=== PATIENT | female | born 1945 | race Caucasian/White ===

== ENCOUNTER 2022-10-02 12:41 | Inpatient (IN) | payer OTHER, MEDICARE ==
--- OUTSIDE RECORDS SUMMARY | 2022-10-02 12:43 | XMS REPORT | Continuity of Care Document ---
:1945 Author Organization [facility] t Address [address] [place] [address] Care Team Providers Name Role Phone Marie SMITH, Jt Alcantara Primary Care Physician Tiago SMITH, Morgan Kauffman Attending Clinician Iván BARLOW, Bharti Attending Clinician Unavailable Payers Payer Name Policy Type Policy Number Effective Date Expiration Date S ource Problems This patient has no known problems. Allergies, Adverse Reactions, Alerts This patient has no known allergies or adverse reactions. Family History Family Member Diagnosis Comments Start Date Stop Date Source Natural sister Schizophrenia [facility] sister Lupus [facility] sister Heart disease [facility] Natural sister Frontotemporal [facility] dementia [facility] son [facility] daughter [facility] Natural father Alzheimer's disease [facility] Social History Social Habit Start Date Stop Date Quantity Comments Source Gender identity 2020-11-09 Identifies as [facility] 12:12:03 female gender Hospital (finding) Sexual orientation 2020-11-09 Heterosexual [facility] 12:12:03 (finding) Hospital History of tobacco Current smoker [facility] use [facility] Alcohol intake 2022-01-05 2022-01-05 Lifetime [facility] 00:00:00 00:00:00 non-drinker [facility] (finding) History of Social 2022-01-05 2022-01-[address] function 00:00:00 00:00:00 Hospital Cigarettes smoked 2020-11-09 2020-11-[address] current (pack per 00:00:00 00:00:00 Hospita l day) - Reported Cigarette 2020-11-09 2020-11-09 [facility] pack-years 00:00:00 00:00:00 Hospital Tobacco use and 2020-11-09 2020-11-09 Smokeless tobacco [facility] exposure 00:00:00 00:00:00 non-user Hospital Tobacco Comment 2020-11-09 2020-11-09 Over 30 years ago [facility] 00:00:00 00:00:00 Hospital Sex Ass[birth year] At [birth year] F [facility] 00:00:00 00:00:00 Hospital Smoking Status Start Date Stop Date Source Ex-smoker 2020-11-09 00:00:00 2020-11-09 00:00:00 [facility] Medications Ordered Filled Start Stop Current Ordering Indication Dosage Frequency Signature Comments Components Source Medication Medication Date Date Medication? Clinician (SIG) Name Name UNABLE TO 2021- No Compound Met hodi FIND 01-05- pain cream st 10:04: 00:00 ( Hospita 06 :00 gabapentin l ,ketoprofe n cyclobenza jv, lidocaine, 5, 10, 2 , 5 ) since 02/06/20 2 x per day 02/2020 levothyroxi Yes 112ug QD Take 112 M ethodi ne 9- mcg by st (SYNTHROID) 09:39: mouth Hospi ta 112 mcg 30 daily. l tablet gabapentin Yes 400mg Q.[id number] Take 400 [facility] (NEURONTIN) 9-28 [id number] mg by s t 400 mg 09:39: 3D mouth 3 Hospita capsule 30 (three) l times a day. ibuprofen 0 Yes 200mg Q6H Take 200 Met hodi (ADVIL) 200 9-[address] MG tablet 09:39: mouth Hospita 30 every 6 l (six) hours as needed. Takes 2 per day acetaminoph 0 Yes 2000mg QD Take 4 Me thodi en 9-[address] (TYLENOL) 09:39: (2,000 mg Hos aldair 500 MG 30 total) by l tablet mouth daily. 4 x a day DULoxetine 0 Yes [id number] TAKE 1 [facility] (CYMBALTA) 9-[address] 30 MG 00:00: MOUTH Hospita capsule 00 EVERY DAY l WITH 60 MG TO MAKE 90 MG / DAY DULoxetine Yes [id number] 60mg QD Take 1 [facility] (CYMBALTA) 01-[address] 60 MG 00:00: (60 mg Hospita capsule 00 total) by l mouth daily. (Take with 30 mg to make a total dose of 90 mg daily) memantine Yes [id number] TAKE 1 M ethodi (NAMENDA) 8-[address] 10 MG 00:00: MOUTH Hospita tablet 00 TWICE A l DAY donepeziL Yes [id number] TAKE 1 M ethodi (ARICEPT) 5-[address] 10 MG 00:00: MOUTH Hospita tablet 00 EVERY DAY l AT NIGHT DULoxetine 2021- No [id number] TAKE 1 [facility] (CYMBALTA) 5-18 - CAPSULE BY st 60 MG 00:00: 00:00 MOUTH Hospita capsule 00 :00 EVERY DAY l WITH 30 MG TO MAKE 90 MG / DAY memantine 2021- No [id number] TAKE 1 [facility] (NAMENDA) 2-21 - TABLET BY st 10 MG 00:00: 00:00 MOUTH Hospita tablet 00 :00 TWICE A l DAY DULoxetine 2020-04- No [id number] TAKE 1 [facility] (CYMBALTA) -18 01-[address] 30 MG 00:00: 00:00 MOUTH Hospita capsule 00 :00 EVERY DAY l WITH 60 MG TO MAKE 90 MG / DAY traMADoL Yes 50mg Q.5D Take 1 [facility] (ULTRAM) 50 -09 tablet (50 st mg tablet 00:00: mg total) Hos aldair 00 by mouth 2 l (two) times a day. Takes 2 x a day Vital Signs Vital Name Observation Time Observation Value Comments Source Respiratory rate 2022-01-05 14:07:00 11 /min [facility] Body height 2022-01-05 14:07:00 162.6 cm [facility] Body weight 2022-01-05 14:07:00 53.343 kg [facility] BMI 2022-01-05 14:07:00 20.19 kg/m2 [facility] Procedures This patient has no known procedures. Plan of Care Planned Activity Planned Date Details Comments Source Future Scheduled 2022-09-[address] [facility] Test 14:35:33 (procedure) [code = 628477100] Future Scheduled 2022-09-25 SHINGLES VACCINES (1 Met [facility] Test 14:35:33 of 2) [code = SHINGLES VACCINES (1 of 2)] Future Scheduled 2022-09-25 65+ PNEUMOCOCCAL Method[facility] Test 14:35:33 VACCINE (1 - PCV) [code = 65+ PNEUMOCOCCAL VACCINE (1 - PCV)] Future Scheduled 2022-09-25 COVID-19 VACCINE (3 - [facility] Test 14:35:33 Pfizer series) [code = COVID-19 VACCINE (3 - Pfizer series)] Future Scheduled 2022-09-25 INFLUENZA VACCINE Method [facility] Test 14:35:33 [code = INFLUENZA VACCINE] Encounters Start End Encounter Admission Attending Care Care Encounter Source Date/Time Date/Time Type Type Clinicians Facility Department ID 2022-01-05 2022-01-05 Telemedici Pratimava [facility], 1.2.840.1 [id number] Method[facility] 10:00:00 10:11:50 ne Morgan [address]201.1.[address] [place] 3.430.2.7 Hospit a .3.477616 l .8 2022-01-05 2022-01-05 Outpatient [facility] [id number] [place] 00:00:00 00:00:00 MOHAM[address]AD [address] 2021-11-26 2021-11-26 Refill Pratim[facility], 1.2.840.1 [id number] Method[facility] 00:00:00 00:00:[address] [place] 3.430.2.7 Hospit a .3.461609 l .8 2021-10-27 2021-10-27 Social Ariesine, 1.2.840.1 [id number] Methodi 00:00:00 00:00:00 Work Bharti [address]275.1.[address] 3.430.2.7 Hospit a .3.593160 l .8 2021-10-12 2021-10-12 Telephone Delmi, 1.2.840.1 [id number] Methodi 00:00:00 00:00:00 Mohammad 37248.1.1 [address] [facility] 3.430.2.7 Hospit a .3.713302 l .8 2021-07-05 2021-07-05 Outpatient [facility] [id number] [place] 00:00:00 00:00:[address] 2020-11-10 2020-11-10 Outpatient [facility] [id number] [place] 00:00:00 00:00:00 MOHAMMAD [address] 2020-07-22 2020-07-22 Outpatient [facility] [id number] [place] 00:00:00 00:00:00 MOHAMMAD [address] 2020-07-22 2020-07-22 Outpatient [facility] [id number] [place] 00:00:00 00:00:00 MOHAMMAD [address] 2020-07-22 2020-07-22 Outpatient [facility] [id number] [place] 00:00:00 00:00:[address] 2020-03-16 2020-03-16 Outpatient [facility] [id number] [place] 00:00:00 00:00:00 MOH[address] Results This patient has no known results.
[2022-10-02] MEDS ORDERED: NA CHLORIDE 0.9% 500 ML ONE ×3 (13:25→21:31)
[2022-10-02 13:31] LABS: Absolute Lymphocytes (CBC) 1.3 K/uL (0.7-4.9); Hematocrit 42.4 % (36.0-45.0); MCV 86.3 fL (80-100); MPV 8.7 fL (7.6-11.3); RBC Red Blood Cell Count 4.92 M/uL (3.86-4.86)
[2022-10-02 13:57] LABS: Specific Gravity 1.026 (1.005-1.030); Urine Bacteria None Seen /HPF (<20); Urine Bilirubin NEGATIVE (Negative); Urine Blood Negative (Negative); Urine Clarity Extremely Turbid (Clear); Urine Color Yellow (Yellow); Urine Glucose NEGATIVE (Negative); Urine Mucus Slight /HPF (None Seen); Urine Protein 2+ (Negative); Urine Urobilinogen Normal (Normal); Urine pH 5.5 (5.0-7.0)
[2022-10-02 13:58] LABS: Albumin 3.9 g/dL (3.4-5.0); Bilirubin Total 0.4 mg/dL (0.2-1.0); Potassium 3.9 mEq/L (3.5-5.1); Protein, Total 7.9 g/dL (6.4-8.2); Thyroid Stimulating Hormone 0.009 uIU/mL (0.358-3.740)
--- NOTE | 2022-10-02 14:06 | RAD REPORT ---
EXAM DESCRIPTION: CT - CTHCSPWOC - 10/02/2022 1:58 pm CLINICAL HISTORY: Trauma, head and neck injury. CONFUSED COMPARISON: No comparisons TECHNIQUE: Axial 5 mm thick images of the head were obtained. Axial 2 mm thick images of the cervical spine were obtained with sagittal and coronal reconstruction images generated and reviewed. All CT scans are performed using dose optimization technique as appropriate and may include automated exposure control or mA/KV adjustment according to patient size. FINDINGS: CT HEAD WITHOUT CONTRAST: No acute hemorrhage, hydrocephalus or extra-axial collection is identified.Mild generalized brain atr ophy.No areas of brain edema or midline shift. The paranasal sinuses and mastoids are clear.The calvarium is intact. CT CERVICAL SPINE WITHOUT CONTRAST: No fracture or subluxation.No prevertebral soft tissues swelling is identified. IMPRESSION: No acute intracranial or cervical spine findings.
[2022-10-02 14:07] LABS: Platelet Estimate ADEQ
[2022-10-02 14:08] LABS: Blood Morphology Comment NOT SEEN (NOT SEEN)
--- NOTE | 2022-10-02 14:43 | RAD REPORT ---
EXAM DESCRIPTION: RAD - Chest Single View - 10/02/2022 2:36 pm CLINICAL HISTORY: COUGH Chest pain. COMPARISON: Chest Pa And Lat (2 Views) dated 11/04/2021 FINDINGS: Portable technique limits examination quality. There is a mild infiltrate in the left lung base likely infiltrate/pneumonia. The lungs are otherwise emphysematous. The heart is normal in size. No displaced fractures. IMPRESSION: Mild left base infiltrate suspected.
[2022-10-02 15:08] LABS: T3 Free 2.05 pg/mL (2.18-3.98)
--- NOTE | 2022-10-02 15:50 | EDPHYS ---
Physician Documentation [facility] Name: Janna Brannon Age: 77 yrs Sex: Female : 1945 Arrival Date: 10/02/2022 Time: 12:41 Bed 6 Private MD: ED Physician Devin De La Garza HPI: 10/02 13:13 This 77 yrs old Female presents to ER via EMS with complaints of Altered Mental Status, snw General Weakness. 13:13 The patient presents with confusion. Onset: The symptoms/episode began/occurred snw acutely. Possible causes: UTI. Current symptoms: In the emergency department the patient's symptoms are unchanged from the initial presentation. The patient has been recently seen by a physician: with different complaint(s), and apparently was diagnosed with UTI. Historical: - Allergies: 12:55 No Known Allergies; iw - Home Meds: 12:56 donepezil 10 mg oral Tablet,disintegrating daily [Active]; duloxetine 30 mg oral iw capsule,delayed release (e.c.) daily [Active]; gabapentin 400 mg oral capsule daily [Active]; levothyroxine 125 mcg tablet daily [Active]; memantine 10 mg oral tablet 2 times per day [Active]; pravastatin 20 mg oral tablet daily [Active]; sulfamethoxazole-trimethoprim 800-160 mg Oral tablet 2 times per day [Active]; tramadol 50 mg Oral tablet 2 times per day [Active]; - PMHx: 12:55 Hypothyroidism; Alzheimer's disease; Hypercholesterolemia; radiculopathy, lumbar; iw thyroid cancer; Osteoarthritis; - Immunization history:: Adult Immunizations unknown. - Social history:: Smoking status: unknown. ROS: 13:11 Eyes: Negative for injury, pain, redness, and discharge. snw 13:11 Neck: Negative for injury, pain, and swelling, Cardiovascular: Negative for chest pain, palpitations, and edema, Respiratory: Negative for shortness of breath, cough, wheezing, and pleuritic chest pain, Abdomen/GI: Negative for abdominal pain, nausea, vomiting, diarrhea, and constipation, Back: Negative for injury and pain. 13:11 MS/Extremity: Negative for injury and deformity, Skin: Negative for injury, rash, and discoloration, Psych: Negative for depression, anxiety, suicide ideation, homicidal ideation, and hallucinations. 13:11 Constitutional: Positive for malaise, AMS. 13:11 ENT: Positive for clearing throat continually. 13:11 : Positive for on Bactrim for UTI. 13:11 Neuro: Positive for altered mental status, weakness. Exam: 13:06 Head/Face: Normocephalic, atraumatic. Eyes: Pupils equal round and reactive to light, snw extra-ocular motions intact. Lids and lashes normal. Conjunctiva and sclera are non-icteric and not injected. Cornea within normal limits. Periorbital areas with no swelling, redness, or edema. 13:06 Neck: Trachea midline, no thyromegaly or masses palpated, and no cervical lymphadenopathy. Supple, full range of motion without nuchal rigidity, or vertebral point tenderness. No Meningismus. Chest/axilla: Normal chest wall appearance and motion. Nontender with no deformity. No lesions are appreciated. Cardiovascular: Irregularly irregular rate and rhythm with a normal S1 and S2. No gallops, murmurs, or rubs. Normal PMI, no JVD. No pulse deficits. Respiratory: Lungs have equal breath sounds bilaterally, clear to auscultation and percussion. No rales, rhonchi or wheezes noted. No increased work of breathing, no retractions or nasal flaring. Abdomen/GI: Soft, non-tender, with normal bowel sounds. No distension or tympany. No guarding or rebound. No evidence of tenderness throughout. Back: No spinal tenderness. No costovertebral tenderness. Full range of motion. Skin: Warm, dry with normal turgor. Normal color with no rashes, no lesions, and no evidence of cellulitis. MS/ Extremity: Pulses equal, no cyanosis. Neurovascular intact. Full, normal range of motion. 13:06 Constitutional: The patient appears alert, awake, pale, confused 13:06 ENT: Mouth: Oral mucosa: dry, continues to try to clear her throat. 13:06 Neuro: Orientation: to person, Mentation: confused, Memory: alzheimer's, seizure activity, is not displayed by the patient, Abnormal movements: there are no abnormal movements. Vital Signs: 12:54 BP 168 / 74; Pulse 88; Resp 19; Temp 97; Pulse Ox 99% on R/A; iw 15:11 BP 139 / 60; Pulse 83; Resp 16; Pulse Ox 97% on R/A; iw 16:46 BP 139 / 73; Pulse 85; Resp 16; Pulse Ox 96% on R/A; iw 20:00 BP 127 / 59; Pulse 82; Resp 23; Pulse Ox 98% on R/A; jb4 Nehemiah Coma Score: 13:06 Eye Response: spontaneous(4). Motor Response: localizes pain(5). Verbal Response: snw confused(4). Total: 13. MDM: 12:45 Patient medically screened. wilber 15:12 Differential Diagnosis: electrolyte abnormality, pneumonia, sepsis, UTI, volume snw depletion. Data reviewed: vital signs, nurses notes, lab test result(s), EKG, radiologic studies. Management of patient was discussed with the following: Pt's LORENA Killian (Daughter) . Post IV fluid administration reassessment for Sepsis: Client not prescribed the 30 mL/kg IVF due to: concern related to renal failure. Amount of IVF prescribed: 1500 500ml at a time Neuro: Neurological examination did not improve from previous exam. Cardio: Cardiovascular examination improved from previous exam. Heart rate and blood pressure have improved. 15:15 ED course: Upon re-evaluation, pt is hemodynamically stable but is more sedate, snw decreased responsiveness. 10/02 13:06 Order name: CBC with Diff; Complete Time: 14:10 snw 10/02 13:06 Order name: CMP; Complete Time: 14:00 snw 10/02 13:06 Order name: Urinalysis w/ reflexes; Complete Time: 13:58 snw 10/02 13:06 Order name: TSH; Complete Time: 14:00 snw 10/02 13:34 Order name: Manual Differential; Complete Time: 14:10 EDMS 10/02 14:01 Order name: Blood Culture Adult (2) snw 10/02 14:01 Order name: Urine Culture snw 10/02 14:01 Order name: T3 Free; Complete Time: 15:12 snw 10/02 14:01 Order name: T4 Free; Complete Time: 15:12 snw 10/02 15:23 Order name: Magnesium; Complete Time: 17:27 snw 10/02 15:23 Order name: Phosphorus; Complete Time: 17:27 snw 10/02 15:23 Order name: Calcium; Complete Time: 17:27 snw 10/02 15:23 Order name: LDH; Complete Time: 17:27 snw 10/02 15:23 Order name: Lactate w/ 2H reflex if indic.; Complete Time: 17:27 snw 10/02 15:23 Order name: Uric Acid; Complete Time: 17:27 snw 10/02 16:32 Order name: Glucose, Ancillary Testing; Complete Time: 16:37 EDMS 10/02 17:12 Order name: CBC with Automated Diff EDMS 10/02 17:12 Order name: CBC with Automated Diff EDMS 10/02 17:12 Order name: Comprehensive Metabolic Panel EDMS 10/02 17:12 Order name: Comprehensive Metabolic Panel EDMS 10/02 17:43 Order name: Glucose, Ancillary Testing; Complete Time: 17:44 EDMS 10/02 13:06 Order name: CT Head C Spine; Complete Time: 14:10 snw 10/02 13:14 Order name: Chest Single View XRAY; Complete Time: 14:48 snw 10/02 13:14 Order name: EKG; Complete Time: 13:14 snw 10/02 17:12 Order name: Renal EDMS 10/02 13:06 Order name: IV Saline Lock; Complete Time: 13:26 snw 10/02 13:06 Order name: Labs collected and sent; Complete Time: 13:26 snw 10/02 13:14 Order name: EKG - Nurse/Tech; Complete Time: 14:20 snw Administered Medications: 13:18 Drug: NS 0.9% IV 500 ml Route: IV; Rate: bolus; Site: right forearm; iw 15:09 Drug: NS 0.9% IV 500 ml Route: IV; Rate: bolus; Site: right forearm; iw 16:00 Follow up: IV Status: Completed infusion iw 16:23 Drug: Rocephin IV 1 grams Route: IV; Rate: calculated rate; Site: right forearm; iw 17:23 Drug: Naloxone IVP 0.1 mg Route: IVP; Site: right forearm; iw Disposition Summary: 10/02/22 15:50 Hospitalization Ordered Hospitalization Status: Inpatient Admission snw Provider: Morgan Harper [facility] Condition: Fair snw Problem: new snw Symptoms: are unchanged snw Bed/Room Type: Standard snw Room Assignment: 424(10/02/22 20:05) bc6 Diagnosis - Severe sepsis without septic shock snw - Unspecified bacterial pneumonia snw - Dehydration with DOYLE snw - Altered mental status, unspecified snw Forms: - Medication Reconciliation Form snw - SBAR form snw Signatures: Dispatcher [employer] EDMS Devin De La Garza MD MD cha Waters, Shelly, TUNNEL HEADING INSPECTOR-C TUNNEL HEADING INSPECTOR-Csnw Farzaneh Zuniga RN RN Deepti Brambila bc6 Corrections: (The following items were deleted from the chart) 12:58 12:55 Constitutional: This is a well developed, well nourished patient who is awake, snw alert, and in no acute distress. snw 13:13 13:06 Neck: Trachea midline, no thyromegaly or masses palpated, and no cervical snw lymphadenopathy. Supple, full range of motion without nuchal rigidity, or vertebral point tenderness. No Meningismus. Chest/axilla: Normal chest wall appearance and motion. Nontender with no deformity. No lesions are appreciated. Cardiovascular: Regular rate and rhythm with a normal S1 and S2. No gallops, murmurs, or rubs. Normal PMI, no JVD. No pulse deficits. Respiratory: Lungs have equal breath sounds bilaterally, clear to auscultation and percussion. No rales, rhonchi or wheezes noted. No increased work of breathing, no retractions or nasal flaring. Abdomen/GI: Soft, non-tender, with normal bowel sounds. No distension or tympany. No guarding or rebound. No evidence of tenderness throughout. Back: No spinal tenderness. No costovertebral tenderness. Full range of motion. Skin: Warm, dry with normal turgor. Normal color with no rashes, no lesions, and no evidence of cellulitis. MS/ Extremity: Pulses equal, no cyanosis. Neurovascular intact. Full, normal range of motion. snw 20:05 15:50 snw bc6
--- NOTE | 2022-10-02 15:50 | ER ---
Nurse's Notes [facility] Name: Janna Brannon Age: 77 yrs Sex: Female : 1945 Arrival Date: 10/02/2022 Time: 12:41 Bed 6 Private MD: Diagnosis: Severe sepsis without septic shock;Unspecified bacterial pneumonia;Dehydration with DOYLE;Altered mental status, unspecified Presentation: 10/02 12:45 Chief complaint: EMS states: toned out for AMS, pt has been on Bactrim for UTI X 1 iw week, became more weak and tired over past two days, she normally walks and talks , hx of dementia , pt able to follow commands. Coronavirus screen: At this time, the client does not indicate any symptoms associated with coronavirus-19. Ebola Screen: Patient negative for fever greater than or equal to 101.5 degrees Fahrenheit, and additional compatible Ebola Virus Disease symptoms Patient denies exposure to infectious person. Patient denies travel to an Ebola-affected area in the 21 days before illness onset. No symptoms or risks identified at this time. Risk Assessment: Do you want to hurt yourself or someone else? Patient reports no desire to harm self or others. 12:45 Method Of Arrival: EMS: [facility] iw 12:45 Acuity: ROSIE 3 iw Historical: - Allergies: 12:55 No Known Allergies; iw - Home Meds: 12:56 donepezil 10 mg oral Tablet,disintegrating daily [Active]; duloxetine 30 mg oral iw capsule,delayed release (e.c.) daily [Active]; gabapentin 400 mg oral capsule daily [Active]; levothyroxine 125 mcg tablet daily [Active]; memantine 10 mg oral tablet 2 times per day [Active]; pravastatin 20 mg oral tablet daily [Active]; sulfamethoxazole-trimethoprim 800-160 mg Oral tablet 2 times per day [Active]; tramadol 50 mg Oral tablet 2 times per day [Active]; - PMHx: 12:55 Hypothyroidism; Alzheimer's disease; Hypercholesterolemia; radiculopathy, lumbar; iw thyroid cancer; Osteoarthritis; - Immunization history:: Adult Immunizations unknown. - Social history:: Smoking status: unknown. Screenin:05 Abuse screen:. Nutritional screening:. Tuberculosis screening: No symptoms or risk iw factors identified. 15:12 [facility] ED Fall Risk Assessment (Adult) History of falling in the last 3 months, iw including since admission. Assessment: 13:04 General: Appears in no apparent distress. slender, Behavior is restless. Pain: Unable iw to use pain scale. FLACC scale score is 5 out of 10. Neuro: Level of Consciousness is awake, obeys commands, Oriented to person, Moves all extremities. Cardiovascular: Patient's skin is warm and dry. Respiratory: Respiratory effort is even, unlabored, Respiratory pattern is regular, symmetrical. GI: Abdomen is non-distended. Derm: Skin is fragile. 15:10 Reassessment: pt is difficult to arouse, opens eyes to sternal rub , caregiver at iw bedside, states she has been like this for past 20 minutes, called daughter to update. 16:20 Reassessment: pt remains difficult to arouse, reacts only to painful stimuli, pulls arm iw away, VSS, FSBS WNL. 17:53 Reassessment: removed blankets from pt, she grabbed at the blankets to pull them back iw over her, assisted pt to upright position , opening eyes , smiling. 18:35 Reassessment: [phone] cell phone number for gourmet coffee attendant/friend Arti , daughter will iw be en route via airplane , will arrive at approx 830 pm. 18:38 Reassessment: pt resting with eyes closed, respirations even and unlabored , VSS. iw 19:00 Reassessment: Patient appears in no apparent distress at this time. No changes from jb4 previously documented assessment. Patient and/or family updated on plan of care and expected duration. Pain level reassessed. 20:07 Reassessment: Pt is now awake and talking. Pt is A\T\Ox1. respirations are even and jb4 unlabored with no s/s of distress ntoed. Vital Signs: 12:54 BP 168 / 74; Pulse 88; Resp 19; Temp 97; Pulse Ox 99% on R/A; iw 15:11 BP 139 / 60; Pulse 83; Resp 16; Pulse Ox 97% on R/A; iw 16:46 BP 139 / 73; Pulse 85; Resp 16; Pulse Ox 96% on R/A; iw 20:00 BP 127 / 59; Pulse 82; Resp 23; Pulse Ox 98% on R/A; jb4 Nehemiah Coma Score: 13:06 Eye Response: spontaneous(4). Motor Response: localizes pain(5). Verbal Response: snw confused(4). Total: 13. ED Course: 12:43 Patient arrived in ED. iw 12:43 [facility]C [facility] snw 12:43 Devin De La Garza MD is Attending Physician. snw 12:46 Triage completed. iw 12:54 Farzaneh Zuniga, RAMILA is Primary Nurse. iw 13:00 Arm band placed on. iw 14:00 CT Head C Spine In Process Unspecified. EDMS 14:20 Urine Culture Sent. mm9 14:20 T3 Free Sent. mm9 14:20 T4 Free Sent. mm9 14:20 Blood Culture Adult (2) Sent. mm9 14:38 Chest Single View XRAY In Process Unspecified. EDMS 15:12 Patient has correct armband on for positive identification. iw 15:48 Morgan Harper MD is Hospitalizing Provider. snw 16:24 Uric Acid Sent. iw 16:24 Lactate w/ 2H reflex if indic. Sent. iw 16:24 LDH Sent. iw 16:24 Calcium Sent. iw 16:24 Phosphorus Sent. iw 16:24 Magnesium Sent. iw 20:33 No provider procedures requiring assistance completed. Patient admitted, IV remains in jb4 place. Administered Medications: 13:18 Drug: NS 0.9% IV 500 ml Route: IV; Rate: bolus; Site: right forearm; iw 15:09 Drug: NS 0.9% IV 500 ml Route: IV; Rate: bolus; Site: right forearm; iw 16:00 Follow up: IV Status: Completed infusion iw 16:23 Drug: Rocephin IV 1 grams Route: IV; Rate: calculated rate; Site: right forearm; iw 17:23 Drug: Naloxone IVP 0.1 mg Route: IVP; Site: right forearm; iw Medication: 13:06 VIS not applicable for this client. iw Outcome: 15:50 Decision to Hospitalize by Provider. snw 20:33 Admitted to Tele accompanied by tech, via stretcher, room 424, with chart. jb4 20:33 Condition: stable 20:33 Discharge instructions given to gourmet coffee attendant, Instructed on the need for admit, Demonstrated understanding of instructions. 20:35 Patient left the ED. jb4 Signatures: Dispatcher [employer] Cynthia Cook, SCHEDULING ASSISTANT-C SCHEDULING ASSISTANT-Csnw Farzaneh Zuniga, RN RN iw August Doran RN RN jb4 Marisol Hernandez mm9
[2022-10-02] MEDS ORDERED: CEFTRIAXONE 1000 MG/VIAL ONE (16:17)
[2022-10-02 16:52] LABS: Magnesium 2.7 mg/dL (1.6-2.4); Phosphorus 3.5 mg/dL (2.5-4.9); Uric Acid 6.7 mg/dL (2.6-6.0)
[2022-10-02] MEDS ORDERED: ACETAMINOPHEN 500 MG TAB PO PRN (17:08)
[2022-10-02] MEDS ORDERED: ONDANSETRON 4 MG/2 ML VIAL IV PRN (17:08)
[2022-10-02] MEDS ORDERED: MORPHINE 2 MG/ML SYR IV PRN (17:08)
[2022-10-02] MEDS ORDERED: NALOXONE 0.4 MG/ML VIAL ONE (17:33)
[2022-10-02] MEDS: NA CHLORIDE 0.9% 1,000 ML IV SCH ×2 (18:00→22:18)
[2022-10-03 02:14] VITALS: O2SAT 97; BMI 19.7
[2022-10-03] MEDS: NA CHLORIDE 0.9% 1,000 ML IV SCH ×2 (04:00→09:17)
[2022-10-03 06:35] LABS: Absolute Lymphocytes (CBC) 1.1 K/uL (0.7-4.9); Hematocrit 34.6 % (36.0-45.0); Lymphocytes % 9.1 % (15.3-44.8); MCV 86.5 fL (80-100); MPV 8.6 fL (7.6-11.3)
[2022-10-03 06:56] LABS: Albumin 2.9 g/dL (3.4-5.0); Bilirubin Total 0.4 mg/dL (0.2-1.0); Potassium 3.8 mEq/L (3.5-5.1); Protein, Total 5.8 g/dL (6.4-8.2)
[2022-10-03] MEDS ORDERED: PNEUMOCOCCAL VACCINE 0.5 ML IMVAC ONE (08:00)
[2022-10-03] MEDS ORDERED: CEFTRIAXONE 1,000 MG in NA CHLORIDE 0.9% 50 ML IVPB SCH (09:00)
--- NOTE | 2022-10-03 11:53 | P.PN ---
Date of Service: 10/03/22 Subjective: ROS: 10 point ROS as noted above, otherwise negative Physical Exam: GEN: Alert, oriented, NAD HEENT: Normal conjunctiva, sclera anicteric CV: Regular rate & rhythm, no edema Pulm: Nonlabored respiraitons on room air ABD: Soft, nontender, nondistended MSK: No joint tenderness Integumentary: No rashes Neuro: Normal speech, normal affect vitals reviewed Problem List: Altered mental status Hypothyroidism Alzheimer's disease hx of thyroid cancer Osteoarthritis Blood cultures: pending Urine culture: pending continue Rocephin(10/03-) PRN pain meds IVF DCd continue home medications VTE: Code: Full Dispo: Home
[2022-10-03] MEDS ORDERED: QUETIAPINE 25 MG TAB PO ONE (20:28)
[2022-10-03] MEDS: ENSURE ENLIVE 237 ML CAN PO SCH (20:29)
[2022-10-03] MEDS: GABAPENTIN 400 MG CAP PO SCH (20:37)
[2022-10-03] MEDS: TRAMADOL HCL 50 MG TAB PO SCH (20:37)
[2022-10-03] MEDS: DONEPEZIL HCL 5 MG TAB PO SCH (20:38)
[2022-10-03] MEDS: ATORVASTATIN 10 MG TAB PO SCH (20:38)
[2022-10-03] MEDS: MEMANTINE HCL 10 MG TABLET PO SCH (20:38)
[2022-10-04] MEDS: NA CHLORIDE 0.9% 1,000 ML IV SCH
[2022-10-04] MEDS: LEVOTHYROXINE SOD 0.125 MG TAB PO SCH (05:19)
[2022-10-04] MEDS: ENSURE ENLIVE 237 ML CAN PO SCH ×2 (09:00→20:15)
[2022-10-04] MEDS: AMOX/K CLAV 875 MG TAB PO SCH ×2 (09:03→20:14)
[2022-10-04] MEDS: MEMANTINE HCL 10 MG TABLET PO SCH ×2 (09:04→20:15)
[2022-10-04] MEDS: TRAMADOL HCL 50 MG TAB PO SCH ×2 (09:04→20:14)
[2022-10-04] MEDS: GABAPENTIN 400 MG CAP PO SCH ×2 (09:05→20:15)
[2022-10-04] MEDS: DULOXETINE 30 MG CAP PO SCH (09:05)
[2022-10-04 09:48] LABS: Absolute Lymphocytes (CBC) 1.3 K/uL (0.7-4.9); Hematocrit 33.1 % (36.0-45.0); Lymphocytes % 16.3 % (15.3-44.8); MCV 86.2 fL (80-100); MPV 8.6 fL (7.6-11.3); RBC Red Blood Cell Count 3.84 M/uL (3.86-4.86)
[2022-10-04 09:54] LABS: Albumin 2.7 g/dL (3.4-5.0); Bilirubin Total 0.5 mg/dL (0.2-1.0); Potassium 3.4 mEq/L (3.5-5.1); Protein, Total 5.6 g/dL (6.4-8.2)
--- NOTE | 2022-10-04 10:59 | P.PN ---
Subjective Date of Service: 10/04/22 Subjective: Improving (pt is more alert, tolerating po, continues to be max assist with transfers) Review of Systems General: Unremarkable Eyes: Unremarkable ENT: Unremarkable Respiratory: Unremarkable Cardiovascular: Unremarkable Gastrointestinal: Unremarkable Genitourinary: Unremarkable Musculoskeletal: Other (generalized weakness) Integumentary: Unremarkable Neurological: Weakness Physical Examination - Vital Signs Temperature: 98 F Blood Pressure: 123/60 Pulse: 63 Respirations: 16 Pulse Ox (%): 96 - Physical Exam General: In no apparent distress HEENT: Atraumatic, PERRLA, EOMI Neck: Supple, JVD not distended Respiratory: Clear to auscultation bilaterally Cardiovascular: No edema Capillary refill: <2 Seconds Gastrointestinal: Normal bowel sounds Musculoskeletal: Other (generalized weakness) Integumentary: No rashes Neurological: Other (max assist for transfers) Lymphatics: No axilla or inguinal lymphadenopathy External genitalia: Deferred Assessment And Plan - Current Problems (Diagnosis) (1) Altered mental status Current Visit: Yes Status: Acute Qualifiers: Altered mental status type: transient alteration of awareness Qualified Code(s): R40.4 - Transient alteration of awareness (2) Pneumonia Current Visit: Yes Status: Acute Plan: Blood cultures negative, discontinue IVF, IV abx (Rocephin), will change to po abx (Augmentin) Qualifiers: Pneumonia type: due to unspecified organism Laterality: left Lung location: lower lobe of lung Qualified Code(s): J18.9 - Pneumonia, unspecified organism (3) UTI (urinary tract infection) Current Visit: Yes Status: Acute Plan: Partially treated UTI from community provider with Bactrim, stopped in ED second to DOYLE. Tx with Rocephin inpatient to finish UTI treatment and also for pneumonia treatment. Qualifiers: Urinary tract infection type: acute cystitis (4) Weakness Current Visit: Yes Status: Acute Plan: Consult Review Manager to [facility] for inpatient rehab. Consult Physical Therapy (5) Acute kidney injury Current Visit: Yes Status: Acute Plan: Resolved with discontinuation of Bactrim and gentle IV fluid initiation. Creatinine from 3.38 to 0.95 this am. Will transition to po Augmentin at full dosing and dc IVF. - Plan Continue Neuro checks q 12h, continue treatment of infection Discharge Plan: Other (inpatient rehab) Plan to discharge in: 24 Hours - Code Status/Comfort Care Code Status Assessed: Yes Code Status: Full Code Time Spent Managing PTS Care (In Minutes): 30
[2022-10-04] MEDS: DONEPEZIL HCL 5 MG TAB PO SCH (20:13)
[2022-10-04] MEDS: ATORVASTATIN 10 MG TAB PO SCH (20:15)
[2022-10-05] MEDS: LEVOTHYROXINE SOD 0.125 MG TAB PO SCH (06:08)
--- NOTE | 2022-10-05 07:20 | P.PN ---
Date of Service: 10/05/22 Subjective: weak, +incontinence (can feel when she needs to go per family, +physical limitations) dementia, hard to come up with words when talking per family no acute events overnight afebrile ROS: 10 point ROS as noted above, otherwise negative Physical Exam: GEN: weak, tired, confused HEENT: Normal conjunctiva, sclera anicteric CV: Regular rate & rhythm, no edema Pulm: Nonlabered respiraitons on room air ABD: Soft, nontender, nondistended MSK: No joint tenderness Integumentary: No rashes Neuro: Normal speech, normal affect vitals reviewed Problem List: Altered mental status Pneumonia UTI DOYLE Hypothyroidism Alzheimer's disease hx of thyroid cancer Osteoarthritis Blood cultures: NGTD Urine culture: pending Rocephin(10/03) switched to PO Augmentin (10/04-) PRN pain meds IVF DCd continue home medications VTE: Code: Full Dispo: Inpatient rehab approved pending further clinical improvement
[2022-10-05] MEDS: TRAMADOL HCL 50 MG TAB PO SCH (08:11)
[2022-10-05] MEDS: AMOX/K CLAV 875 MG TAB PO SCH (08:12)
[2022-10-05] MEDS: GABAPENTIN 400 MG CAP PO SCH (08:12)
[2022-10-05] MEDS: MEMANTINE HCL 10 MG TABLET PO SCH (08:12)
[2022-10-05] MEDS: DULOXETINE 30 MG CAP PO SCH (08:12)
[2022-10-05] MEDS: ENSURE ENLIVE 237 ML CAN PO SCH (08:13)
[2022-10-05 08:16] VITALS: TEMP 97.4
[2022-10-05 08:37] LABS: Potassium 3.5 mEq/L (3.5-5.1)
--- NOTE | 2022-10-05 11:43 | P.DS ---
Admission Date: 10/02/22 Discharge Date: 10/05/22 Disposition: TRANSFER TO INPATIENT REHAB Hospital Course: Problem List: Altered mental status Pneumonia UTI POA Hypothyroidism Alzheimer's disease hx of thyroid cancer Osteoarthritis Patient presented with altered mental status. x-ray of the chest revealed mild infiltrate in the left lung base likely infiltrate/pneumonia. Patient was partially treated UTI from community provider with Bactrim, and switched to rocephin due to suspected allergy which may have contributed to altered mentation/DOYLE. DOYLE resolved with discontinuation of bactrim and gentle IVF. Rocephin was switched to PO augmentin to treat suspected pneumonia/UTI. Blood & urine cultures were without growth, however final results pending upon discharge. New / change in prescriptions: continue home medications as previously prescribed Stay away from bactrim due to suspected allergy (altered mentation +DOYLE) Follow up: PCP 3-5 days Physical Exam: GEN: weak, tired, confused HEENT: Normal conjunctiva, sclera anicteric CV: Regular rate & rhythm, no edema Pulm: Nonlabered respiraitons on room air ABD: Soft, nontender, nondistended MSK: No joint tenderness Integumentary: No rashes Neuro: Normal speech, normal affect Vital Signs/Physical Exam: Temp Pulse Resp BP Pulse Ox 97.4 F 59 20 146/55 H 96 10/05/22 08:00 10/05/22 08:00 10/05/22 08:00 10/05/22 08:00 10/05/22 08:00 Laboratory Data at Discharge: WBC 7.90 thou/uL (4.3-10.9) 10/04/22 09:23 Hgb 11.1 g/dL (12.0-15.0) L 10/04/22 09:23 Hct 33.1 % (36.0-45.0) L 10/04/22 09:23 Plt Count 205 thou/uL (152-406) 10/04/22 09:23 Sodium 139 mEq/L (136-145) 10/05/22 08:06 Potassium 3.5 mEq/L (3.5-5.1) 10/05/22 08:06 BUN 22 mg/dL (7-18) H 10/05/22 08:06 Creatinine 0.74 mg/dL (0.55-1.02) 10/05/22 08:06 Glucose 92 mg/dL (74-106) 10/05/22 08:06 Uric Acid 6.7 mg/dL (2.6-6.0) H 10/02/22 16:20 Phosphorus 3.5 mg/dL (2.5-4.9) 10/02/22 16:20 Magnesium 2.7 mg/dL (1.6-2.4) H 10/02/22 16:20 Total Bilirubin 0.5 mg/dL (0.2-1.0) 10/04/22 09:23 AST 27 U/L (15-37) 10/04/22 09:23 ALT 23 U/L (13-56) 10/04/22 09:23 Alkaline Phosphatase 55 U/L (45-117) 10/04/22 09:23 Home Medications: Donepezil HCl 10 mg PO BEDTIME 10/03/22 Duloxetine HCl 30 mg PO DAILY 10/03/22 Gabapentin 400 mg PO BID 10/03/22 Ibuprofen 200 mg PO DAILY PRN 10/03/22 Levothyroxine [Synthroid] 125 mcg PO [id number] 10/03/22 Memantine HCl 10 mg PO BID 10/03/22 Pravastatin Sodium 20 mg PO BEDTIME 10/03/22 Tramadol HCl [Ultram] 50 mg PO BID 10/03/22 Physician Discharge Instructions: Patient presented with altered mental status. x-ray of the chest revealed mild infiltrate in the left lung base likely infiltrate/pneumonia. Patient was partially treated UTI from community provider with Bactrim, and switched to rocephin due to suspected allergy which may have contributed to altered mentation/DOYLE. DOYLE resolved with discontinuation of bactrim and gentle IVF. Rocephin was switched to PO augmentin to treat suspected pneumonia/UTI. Blood & urine cultures were without growth, however final results pending upon discharge. New / change in prescriptions: continue home medications as previously prescribed Stay away from bactrim due to suspected allergy (altered mentation +DOYLE) Follow up: PCP 3-5 days Followup: NONE,NONE [Primary Care Provider] - Time spent managing pt's care (in minutes): 45
[2022-10-05 11:54] VITALS: BP 114/49
== END 2022-10-05 13:04 | DRG 871 ==
LOC: ER 12:41 → ERHOLD 17:08 → 4TH 20:15
PROVIDERS: ADMIT Hospitalist; ATTEND Hospitalist
DX: A41.9 Sepsis, unspecified organism (principal); G93.41 Metabolic encephalopathy; J15.9 Unspecified bacterial pneumonia; N17.9 Acute kidney failure, unspecified; N30.00 Acute cystitis without hematuria; R65.20 Severe sepsis without septic shock; E03.9 Hypothyroidism, unspecified; E86.0 Dehydration; M19.90 Unspecified osteoarthritis, unspecified site; E78.00 Pure hypercholesterolemia, unspecified; G30.9 Alzheimer's disease, unspecified; F02.80 Dementia in other diseases classified elsewhere, unspecified severity, without behavioral disturbance, psychotic disturbance, mood disturbance, and anxiety; Z79.890 Hormone replacement therapy; Z79.899 Other long term (current) drug therapy
CPT/HCPCS: 36415; 70450; 71045; 72125; 80048; 80053; 81001; 82310; 82947; 83605; 83615; 83735; 84100; 84439; 84443; 84481; 84550; 85025; 87040; 96361; 96374; 96375; 97116; 97163; 97530; 99285; J0696; J2310; J2405; J7030; J7040

== ENCOUNTER 2023-02-20 23:20 | Emergency (ER) | payer OTHER, MEDICARE ==
--- OUTSIDE RECORDS SUMMARY | 2023-02-20 23:29 | XMS REPORT | Continuity of Care Document ---
:1945 Author Organization [facility] t Address [address] [facility]. [address] [place] [address] Care Team Providers Name Role Phone Marie SMITH, Jt Alcantara Primary Care Physician Iván BARLOW, Bharti Attending Clinician Unavailable Damián RN, Vee Attending Clinician Unavailable Tiago SMITH, Morgan Kauffman Attending Clinician [phone] Payers Payer Name Policy Type Policy Number Effective Date Expiration Date S ource Problems This patient has no known problems. Allergies, Adverse Reactions, Alerts This patient has no known allergies or adverse reactions. Family History Family Member Diagnosis Comments Start Date Stop Date Source Natural sister Schizophrenia [facility] sister Lupus [facility] Natural sister Heart disease [facility] Natural sister Frontotemporal [facility] dementia [facility] son [facility] Natural father Alzheimer's disease [facility] Social History Social Habit Start Date Stop Date Quantity Comments Source Gender identity 2020-11-09 Identifies as [facility] 12:12:03 female gender Hospital (finding) Sexual orientation 2020-11-09 Heterosexual [facility] 12:12:03 (finding) Hospital History of tobacco Cigarette Smoker [facility] use Hospital Alcohol intake 2022-01-05 2022-01-05 Lifetime [facility] 00:00:00 00:00:00 non-drinker Hospital (finding) History of Social 2022-01-05 2022-01-[address] function 00:00:00 00:00:00 Hospital Cigarettes smoked 2020-11-09 2020-11-[address] current (pack per 00:00:00 00:00:00 Hospita l day) - Reported Cigarette 2020-11-09 2020-11-09 [facility] pack-years 00:00:00 00:00:00 Hospital Tobacco Comment 2020-11-09 2020-11-09 Over 30 years ago [facility] 00:00:00 00:00:00 Hospital Tobacco use and 2020-11-09 2020-11-09 Smokeless tobacco [facility] exposure 00:00:00 00:00:00 non-user Hospital Sex Assigned At [birth year] F Sabianism 00:00:00 00:00:00 Hospital Smoking Status Start Date Stop Date Source Ex-smoker 2020-11-09 00:00:00 2020-11-09 00:00:00 [facility] Medications Ordered Filled Start Stop Current Ordering Indication Dosage Frequency Signature Comments Components Source Medication Medication Date Date Medication? Clinician (SIG) Name Name DULoxetine 2022-04 Yes [id number] TAKE 1 [facility] (CYMBALTA) 0-[address] 30 MG 00:00: MOUTH ONCE Hospit a capsule 00 DAILY WITH l 60MG, TO EQUAL 90MG DAILY UNABLE TO 2021- No Compound Met hodi FIND 01-[address] 10:04: 00:00 ( Hospita 06 :00 gabapentin l ,ketoprofe n cyclobenza jv, lidocaine, 5, 10, 2 , 5 ) since 02/06/20 2 x per day 02/2020 UNABLE TO 2021- No Compound Met hodi FIND 01-[address] 10:04: 00:00 ( Hospita 06 :00 gabapentin l ,ketoprofe n cyclobenza jv, lidocaine, 5, 10, 2 , 5 ) since 02/06/20 2 x per day 02/2020 levothyroxi Yes 112ug QD Take 112 M ethodi ne - mcg by st (SYNTHROID) 09:39: mouth Hospi ta 112 mcg 30 daily. l tablet gabapentin Yes 400mg Q.[id number] Take 400 [facility] (NEURONTIN) 9- [id number] mg by s t 400 mg 09:39: 3D mouth 3 Hospita capsule 30 (three) l times a day. ibuprofen 2022-0 Yes 200mg Q6H Take 200 Met hodi (ADVIL) 200 9-[address] MG tablet 09:39: mouth Hospita 30 every 6 l (six) hours as needed. Takes 2 per day acetaminoph 2022-0 Yes 2000mg QD Take 4 Me thodi en 9-[address] (TYLENOL) 09:39: (2,000 mg Hos aldair 500 MG 30 total) by l tablet mouth daily. 4 x a day levothyroxi 2022-0 Yes 112ug QD Take 112 M ethodi ne 9-[address] (SYNTHROID) 09:39: mouth Hospi ta 112 mcg 30 daily. l tablet gabapentin 2022-0 Yes 400mg Q.[id number] Take 400 [facility] (NEURONTIN) 9-28 [id number] mg by s t 400 mg 09:39: 3D mouth 3 Hospita capsule 30 (three) l times a day. ibuprofen 2022-0 Yes 200mg Q6H Take 200 Met hodi (ADVIL) 200 9-[address] MG tablet 09:39: mouth Hospita 30 every 6 l (six) hours as needed. Takes 2 per day acetaminoph 2022-0 Yes 2000mg QD Take 4 Me thodi en 9-[address] (TYLENOL) 09:39: (2,000 mg Hos aldair 500 MG 30 total) by l tablet mouth daily. 4 x a day levothyroxi 2022-0 Yes 112ug QD Take 112 M ethodi ne 9-[address] (SYNTHROID) 09:39: mouth Hospi ta 112 mcg 30 daily. l tablet gabapentin 2022-0 Yes 400mg Q.[id number] Take 400 [facility] (NEURONTIN) 9-28 [id number] mg by s t 400 mg 09:39: 3D mouth 3 Hospita capsule 30 (three) l times a day. ibuprofen 2022-0 Yes 200mg Q6H Take 200 Met hodi (ADVIL) 200 9-[address] MG tablet 09:39: mouth Hospita 30 every 6 l (six) hours as needed. Takes 2 per day acetaminoph 2022-0 Yes 2000mg QD Take 4 Me [facility] en 9-[address] (TYLENOL) 09:39: (2,000 mg Hos aldair 500 MG 30 total) by l tablet mouth daily. 4 x a day DULoxetine Yes [id number] 60mg QD Take 1 [facility] (CYMBALTA) 01-[address] 60 MG 00:00: (60 mg Hospita capsule 00 total) by l mouth daily. (Take with 30 mg to make a total dose of 90 mg daily) DULoxetine Yes [id number] TAKE 1 [facility] (CYMBALTA) 01-[address] 30 MG 00:00: MOUTH Hospita capsule 00 EVERY DAY l WITH 60 MG TO MAKE 90 MG / DAY DULoxetine Yes [id number] 60mg QD Take 1 [facility] (CYMBALTA) 01-[address] 60 MG 00:00: (60 mg Hospita capsule 00 total) by l mouth daily. (Take with 30 mg to make a total dose of 90 mg daily) DULoxetine Yes [id number] TAKE 1 [facility] (CYMBALTA) 01-[address] 30 MG 00:00: MOUTH Hospita capsule 00 EVERY DAY l WITH 60 MG TO MAKE 90 MG / DAY DULoxetine Yes [id number] 60mg QD Take 1 [facility] (CYMBALTA) 01-[address] 60 MG 00:00: (60 mg Hospita capsule 00 total) by l mouth daily. (Take with 30 mg to make a total dose of 90 mg daily) DULoxetine 2023- No [id number] TAKE 1 [facility] (CYMBALTA) 01-05 10-[address] 30 MG 00:00: 00:00 MOUTH Hospita capsule 00 :00 EVERY DAY l WITH 60 MG TO MAKE 90 MG / DAY memantine 0 Yes [id number] TAKE 1 M ethodi (NAMENDA) 8-[address] 10 MG 00:00: MOUTH Hospita tablet 00 TWICE A l DAY memantine 0 Yes [id number] TAKE 1 M ethodi (NAMENDA) 8-[address] 10 MG 00:00: MOUTH Hospita tablet 00 TWICE A l DAY memantine 0 Yes [id number] TAKE 1 M ethodi (NAMENDA) 8-[address] 10 MG 00:00: MOUTH Hospita tablet 00 TWICE A l DAY donepeziL 0 Yes [id number] TAKE 1 M ethodi (ARICEPT) 5-[address] 10 MG 00:00: MOUTH Hospita tablet 00 EVERY DAY l AT NIGHT donepeziL Yes [id number] TAKE 1 M ethodi (ARICEPT) 5-[address] 10 MG 00:00: MOUTH Hospita tablet 00 EVERY DAY l AT NIGHT donepeziL Yes [id number] TAKE 1 M ethodi (ARICEPT) 5-[address] 10 MG 00:00: MOUTH Hospita tablet 00 EVERY DAY l AT NIGHT DULoxetine 2021- No [id number] TAKE 1 [facility] (CYMBALTA) 08-[address] 60 MG 00:00: 00:00 MOUTH Hospita capsule 00 :00 EVERY DAY l WITH 30 MG TO MAKE 90 MG / DAY DULoxetine 2021- No [id number] TAKE 1 [facility] (CYMBALTA) 08-[address] 60 MG 00:00: 00:00 MOUTH Hospita capsule 00 :00 EVERY DAY l WITH 30 MG TO MAKE 90 MG / DAY memantine 2021- No [id number] TAKE 1 [facility] (NAMENDA) 05-31- TABLET BY st 10 MG 00:00: 00:00 MOUTH Hospita tablet 00 :00 TWICE A l DAY memantine 2021- No [id number] TAKE 1 [facility] (NAMENDA) 05-31- TABLET BY st 10 MG 00:00: 00:00 MOUTH Hospita tablet 00 :00 TWICE A l DAY DULoxetine 2020-04- No [id number] TAKE 1 [facility] (CYMBALTA) 04-[address] 30 MG 00:00: 00:00 MOUTH Hospita capsule 00 :00 EVERY DAY l WITH 60 MG TO MAKE 90 MG / DAY DULoxetine 2020-04- No [id number] TAKE 1 [facility] (CYMBALTA) 04-[address] 30 MG 00:00: 00:00 MOUTH Hospita capsule 00 :00 EVERY DAY l WITH 60 MG TO MAKE 90 MG / DAY traMADoL Yes 50mg Q.5D Take 1 [facility] (ULTRAM) 50 4- tablet (50 st mg tablet 00:00: mg total) Hos aldair 00 by mouth 2 l (two) times a day. Takes 2 x a day traMADoL 0 Yes 50mg Q.5D Take 1 [facility] (ULTRAM) 50 4-09 tablet (50 st mg tablet 00:00: mg total) Hos aldair 00 by mouth 2 l (two) times a day. Takes 2 x a day traMADoL 0 Yes 50mg Q.5D Take 1 [facility] (ULTRAM) 50 4-09 tablet (50 st mg tablet 00:00: mg total) Hos aldair 00 by mouth 2 l (two) times a day. Takes 2 x a day Vital Signs Vital Name Observation Time Observation Value Comments Source Respiratory rate 2022-01-05 14:07:00 11 /min [facility] Body height 2022-01-05 14:07:00 162.6 cm [facility] Body weight 2022-01-05 14:07:00 53.343 kg [facility] BMI 2022-01-05 14:07:00 20.19 kg/m2 [facility] Procedures This patient has no known procedures. Plan of Care Planned Activity Planned Date Details Comments Source Future Scheduled 2023-02-16 Hepatitis C screening [facility] Test 16:09:08 (procedure) [code = 093709809] Future Scheduled 2023-02-16 SHINGLES VACCINES (1 Met [facility] Test 16:09:08 of 2) [code = SHINGLES VACCINES (1 of 2)] Future Scheduled 2023-02-16 65+ PNEUMOCOCCAL [facility] Test 16:09:08 VACCINE (1 - PCV) [code = 65+ PNEUMOCOCCAL VACCINE (1 - PCV)] Future Scheduled 2023-02-16 COVID-19 VACCINE (3 - [facility] Test 16:09:08 season) [code = COVID-19 VACCINE (3 - season)] Future Scheduled 2023-02-16 INFLUENZA VACCINE (#1) [facility] Test 16:09:08 [code = INFLUENZA VACCINE (#1)] Future Scheduled 2022-09-25 Hepatitis C screening [facility] Test 14:35:33 (procedure) [code = 423343316] Future Scheduled 2022-09-25 SHINGLES VACCINES (1 [facility] Test 14:35:33 of 2) [code = SHINGLES VACCINES (1 of 2)] Future Scheduled 2022-09-25 65+ P[facility]UMOCOCCAL [facility] Test 14:35:33 VACCINE (1 - PCV) [code = 65+ PNEUMOCOCCAL VACCINE (1 - PCV)] Future Scheduled 2022-09-25 COVID-19 VACCINE (3 - [facility] Test 14:35:33 Pfizer series) [code = COVID-19 VACCINE (3 - Pfizer series)] Future Scheduled 2022-09-25 INFLUENZA VACCINE [facility] Test 14:35:33 [code = INFLUENZA VACCINE] Future Scheduled 2022-09-25 Hepatitis C screening [facility] Test 14:35:33 (procedure) [code = 107733917] Future Scheduled 2022-09-25 SHINGLES VACCINES (1 Met [facility] Test 14:35:33 of 2) [code = SHINGLES VACCINES (1 of 2)] Future Scheduled 2022-09-25 65+ PNEUMOCOCCAL [facility] Test 14:35:33 VACCINE (1 - PCV) [code = 65+ PNEUMOCOCCAL VACCINE (1 - PCV)] Future Scheduled 2022-09-25 COVID-19 VACCINE (3 - [facility] Test 14:35:33 Pfizer series) [code = COVID-19 VACCINE (3 - Pfizer series)] Future Scheduled 2022-09-25 INFLUENZA VACCINE [facility] Test 14:35:33 [code = INFLUENZA VACCINE] Encounters Start End Encounter Admission Attending Care Care Encounter Source Date/Time Date/Time Type Type Clinicians Facility Department ID 2023-01-31 2023-01-31 Social Minor, 1.2.840.1 [id number] [facility] 00:00:00 00:00:00 Work Bharti 07249.1.[address] 3.430.2.7 Hospit a .3.571130 l .8 2023-01-31 2023-01-31 Deann Steel 1.2.840.1 [id number] [facility] 00:00:00 00:00:00 Only Vee 64062.1.[address] 3.430.2.7 Hospit a .3.774365 l .8 2023-01-08 2023-01-08 Priti Ordoñez 1.2.840.1 [id number] [facility] 00:00:00 00:00:[address] [place] 3.430.2.7 Hospit a .3.387018 l .8 2022-12-19 2022-12-19 Refill [facility], 1.2.840.1 [id number] [facility] 00:00:00 00:00:[address] [place] 3.430.2.7 Hospit a .3.556093 l .8 2022-01-05 2022-01-05 Telemedici [facility], 1.2.840.1 [id number] [facility] 10:00:00 10:11:50 ne Mohammad 86418.1.[address] [place] 3.430.2.7 Hospit a .3.685874 l .8 2021-11-26 2021-11-26 Refill [facility], 1.2.840.1 [id number] [facility] 00:00:00 00:00:[address] [place] 3.430.2.7 Hospit a .3.781680 l .8 2021-10-27 2021-10-27 [facility], 1.2.840.1 [id number] [facility] 00:00:00 00:00:00 Work Bharti 63876.1.[address] 3.430.2.7 Hospit a .3.719585 l .8 2021-10-12 2021-10-12 Telephone [facility], 1.2.840.1 [id number] [facility] 00:00:00 00:00:[address] [place] 3.430.2.7 Hospit a .3.385612 l .8 2021-07-05 2021-07-05 [facility] [id number] [place] 00:00:00 00:00:[address] 2020-11-10 2020-11-10 Outpatient [facility] [id number] [place] 00:00:00 00:00:00 MOHAMMAD [address] 2020-07-22 2020-07-22 Outpatient [facility] [id number] [place] 00:00:00 00:00:00 MOHAMMAD [address] 2020-07-22 2020-07-22 Outpatient [facility] [id number] [place] 00:00:00 00:00:00 MOHAMMAD [address] 2020-07-22 2020-07-22 Outpatient [facility] [id number] [place] 00:00:00 00:00:[address] 2020-03-16 2020-03-16 Outpatient [facility] [id number] [place] 00:00:00 00:00:00 MOHAMMAD [address] Results This patient has no known results.
[2023-02-21 00:32] LABS: Absolute Lymphocytes (CBC) 2.5 K/uL (0.7-4.9); Hematocrit 37.2 % (36.0-45.0); Lymphocytes % 27.4 % (15.3-44.8); MCV 88.3 fL (80-100); Platelets 308 thou/uL (152-406); RBC Red Blood Cell Count 4.21 M/uL (3.86-4.86)
[2023-02-21 00:44] LABS: Potassium 3.6 mEq/L (3.5-5.1); Troponin High Sensitivity 7.7 pg/mL (<58.9)
--- NOTE | 2023-02-21 03:23 | EDPHYS ---
Physician Documentation [facility] Name: Janna Brannon Age: 77 yrs Sex: Female : 1945 Arrival Date: 02/20/2023 Time: 23:20 Bed 14 Private MD: ED Physician Lakeisha Drummond HPI: 02/20 23:26 This 77 yrs old Female presents to ER via Unassigned with complaints of Fall Injury. sp3 23:26 77-year-old female presents to the ED via EMS for fall that she sustained at nursing sp3 home. She was last seen at 10 PM in her bed and at 1045 she was observed to be on the floor. No obvious trauma or other injury was noted or noticed. Patient has no complaints and states that she feels fine. History, physical and ROS is limited secondary to Alzheimer's and age. She denies headache, neck pain, chest pain, shortness of breath, back pain, abdominal pain, vomiting, diarrhea, joint pain, or any other signs or symptoms on ROS at this time.. Historical: - Allergies: 23:34 Bactrim; pf1 - PMHx: 23:34 Alzheimer's disease; Hypercholesterolemia; Hypothyroidism; osteoarthritis; pf1 Radiculopathy; THYROID CANCER; - Social history:: Smoking status: unknown. ROS: 23:31 Constitutional: Negative for fever, chills, and weight loss, Eyes: Negative for injury, sp3 pain, redness, and discharge, Neck: Negative for injury, pain, and swelling, Cardiovascular: Negative for chest pain, palpitations, and edema, Respiratory: Negative for shortness of breath, cough, wheezing, and pleuritic chest pain, Abdomen/GI: Negative for abdominal pain, nausea, vomiting, diarrhea, and constipation, Back: Negative for injury and pain, MS/Extremity: Negative for injury and deformity, Skin: Negative for injury, rash, and discoloration, Neuro: Negative for headache, weakness, numbness, tingling, and seizure, Psych: Negative for depression, anxiety, suicide ideation, homicidal ideation, and hallucinations, Allergy/Immunology: Negative for hives, rash, and allergies, Endocrine: Negative for neck swelling, polydipsia, polyuria, polyphagia, and marked weight changes, Hematologic/Lymphatic: Negative for swollen nodes, abnormal bleeding, and unusual bruising, Exam: 23:31 Constitutional: This is a well developed, well nourished patient who is awake, alert, sp3 and in no acute distress. Head/Face: Normocephalic, atraumatic. Eyes: Pupils equal round and reactive to light, extra-ocular motions intact. Lids and lashes normal. Conjunctiva and sclera are non-icteric and not injected. Cornea within normal limits. Periorbital areas with no swelling, redness, or edema. Neck: Trachea midline, no thyromegaly or masses palpated, and no cervical lymphadenopathy. Supple, full range of motion without nuchal rigidity, or vertebral point tenderness. No Meningismus. Chest/axilla: Normal chest wall appearance and motion. Nontender with no deformity. No lesions are appreciated. Cardiovascular: Regular rate and rhythm with a normal S1 and S2. No gallops, murmurs, or rubs. Normal PMI, no JVD. No pulse deficits. Respiratory: Lungs have equal breath sounds bilaterally, clear to auscultation and percussion. No rales, rhonchi or wheezes noted. No increased work of breathing, no retractions or nasal flaring. Abdomen/GI: Soft, non-tender, with normal bowel sounds. No distension or tympany. No guarding or rebound. No evidence of tenderness throughout. Back: No spinal tenderness. No costovertebral tenderness. Full range of motion. Skin: Warm, dry with normal turgor. Normal color with no rashes, no lesions, and no evidence of cellulitis. MS/ Extremity: Pulses equal, no cyanosis. Neurovascular intact. Full, normal range of motion. Neuro: Awake and alert, GCS 15, oriented to person, place, time, and situation. Cranial nerves II-XII grossly intact. Motor strength 5/5 in all extremities. Sensory grossly intact. Cerebellar exam normal. Normal gait. Psych: Awake, alert, with orientation to person, place and time. Behavior, mood, and affect are within normal limits. 23:31 Neuro: Neurological exam normal except for mentation due to Alzheimer's., 02/21 00:06 ECG was reviewed by the Attending Physician. EKG demonstrates normal sinus rhythm at 73 sp3 bpm with normal intervals, normal QRS, normal axis, nonspecific diffuse ST/T changes without evidence of acute ischemia. Vital Signs: 02/20 23:26 BP 148 / 63; Pulse 74; Resp 16; Temp 98.5; Pulse Ox 98% on R/A; Weight 62 kg; Pain 5/10;pf1 02/21 00:00 BP 155 / 64; Pulse 77; Resp 18 S; Pulse Ox 96% on R/A; ha1 01:00 BP 114 / 68; Pulse 76; Resp 18 S; Pulse Ox 97% on R/A; ha1 02:00 BP 116 / 70; Pulse 79; Resp 16; Pulse Ox 98% on R/A; Pain 0/10; pf1 03:00 BP 113 / 69; Pulse 79; Resp 17; Temp 98; Pulse Ox 98% ; pf1 02/20 23:26 Pain Scale: Adult pf1 02:00 Pain Scale: Adult pf1 MDM: 02/20 23:26 Patient medically screened. sp3 23:31 Data reviewed: vital signs, nurses notes, lab test result(s), radiologic studies. ED sp3 course: 77-year-old with bed level fall. I am not highly suspicious for any serious injury however we will evaluate with laboratory values, chest x-ray, lumbar x-ray and CT scan of the head and C-spine. If work-up is negative we will [facility] 02/21 02:00 ED course: Reviewed labs and all imaging including CT scan of the head and C-spine as sp3 well as her plain films that I reviewed. Laboratory values also within normal limits. We will safely discharge her back to her housing facility at this time.. 02/20 23:24 Order name: Basic Metabolic Panel sp3 02/20 23:24 Order name: CBC with Diff sp3 02/20 23:24 Order name: Troponin HS sp3 02/20 23:24 Order name: CK sp3 02/20 23:24 Order name: CXR XRAY sp3 02/20 23:24 Order name: Lumbar Spine (1 view) XRAY sp3 02/20 23:27 Order name: CT Head C Spine sp3 02/20 23:24 Order name: EKG; Complete Time: 23:24 sp3 02/20 23:24 Order name: Cardiac monitoring; Complete Time: 00:04 sp3 02/20 23:24 Order name: EKG - Nurse/Tech; Complete Time: 00:04 sp3 02/20 23:24 Order name: IV Saline Lock; Complete Time: 00:04 sp3 02/20 23:24 Order name: Labs collected and sent; Complete Time: 00:04 sp3 Administered Medications: No medications were administered Disposition Summary: 02/21/23 02:02 Discharge Ordered Notes: Location: Home sp3 Condition: Stable sp3 Diagnosis - Fall sp3 Followup: sp3 - With: Private Physician - When: Upon discharge from the Emergency Department - Reason: Continuance of care Discharge Instructions: - Discharge Summary Sheet sp3 - Fall Prevention in Hospitals, Adult sp3 Forms: - Medication Reconciliation Form sp3 - Thank You Letter sp3 - Antibiotic Education sp3 - Prescription Opioid Use sp3 - Patient Portal Instructions sp3 - Leadership Thank You Letter sp3 Signatures: Dispatcher [employer] EDMS Lakeisha Drummond MD MD sp3 Alexandra Eid RN RN pf1 Corrections: (The following items were deleted from the chart) 02/20 23:31 23:26 77-year-old female presents to the ED via EMS for fall that she sustained. sp3 sp3 23:35 23:34 PMHx: Radiculopathy; pf1 pf1
--- NOTE | 2023-02-21 03:23 | ER ---
Nurse's Notes [facility] Name: Janna Brannon Age: 77 yrs Sex: Female : 1945 Arrival Date: 02/20/2023 Time: 23:20 Bed 14 Private MD: Diagnosis: Fall Presentation: 02/20 23:26 Chief complaint: EMS states: Patient was found on the floor with C/O pain. [facility] that pf1 patient was last seen sitting in a chair at 2200 per [facility]. Coronavirus screen: Client denies travel out of the [place] in the last 14 days. At this time, the client does not indicate any symptoms associated with coronavirus-19. Ebola Screen: Patient negative for fever greater than or equal to 101.5 degrees Fahrenheit, and additional compatible Ebola Virus Disease symptoms. Initial Sepsis Screen: Does the patient meet any 2 criteria? No. Patient's initial sepsis screen is negative. Does the patient have a suspected source of infection? No. Patient's initial sepsis screen is negative. Risk Assessment: Do you want to hurt yourself or someone else? Patient reports no desire to harm self or others. 23:26 Method Of Arrival: EMS: [facility] pf1 23:26 Acuity: ROSIE 3 pf1 Historical: - Allergies: 23:34 Bactrim; pf1 - PMHx: 23:34 Alzheimer's disease; Hypercholesterolemia; Hypothyroidism; osteoarthritis; pf1 Radiculopathy; THYROID CANCER; - Social history:: Smoking status: unknown. Screenin/14 01:11 Abuse screen: Denies threats or abuse. Denies injuries from another. Nutritional ha1 screening: No deficits noted. Tuberculosis screening: No symptoms or risk factors identified. 01:11 [facility] ED Fall Risk Assessment (Adult) History of falling in the last 3 months, pf1 including since admission Yes- single mechanical fall (1 pt) Confusion or Disorientation Yes (5 pts) Intoxicated or Sedated No (0 pts) Impaired Gait Yes (1 pt) Mobility Assist Device Used Yes (1 pt) Altered Elimination Yes (1 pt) Score/Fall Risk Level 3 or more points = High Risk Oriented to surroundings, Maintained a safe environment, Educated pt \T\ family on fall prevention, incl call for assistance when getting out of bed, Assessed \T\ reinforced patient's understanding of fall precautions, Provided non-skid footwear, Hourly rounding (assess needs \T\ fall precautionary measures) done, Used ambulatory aids as needed (educated on \T\ assisted with), Used gait belt as appropriate Implemented a Fall Risk Plan of Care, Apply high fall risk patient identification: yellow non skid footwear/ fall signage, Placed fall mat w/ non beveled edge next to bed, Remained w/in arm's length of patient and in sight while toileting, Offered frequent toileting (1:1 observation), Remained with patient while ambulating, Utilized family, sitter, or virtual member of technical staff as indicated. Assessment: 02/20 23:30 General: Appears in no apparent distress. comfortable, well groomed, well developed, pf1 Behavior is calm, cooperative, appropriate for age, quiet. 23:30 Pain: Complains of pain in Patient C/O right medial knee pain, denies any other pain. pf1 Neuro: No deficits noted. Level of Consciousness is awake, alert, Oriented to Appropriate for age. Cardiovascular: No deficits noted. Capillary refill < 3 seconds Patient's skin is warm and dry. Respiratory: No deficits noted. Airway is patent Respiratory effort is even, unlabored, Respiratory pattern is regular, symmetrical. GI: No deficits noted. No signs and/or symptoms were reported involving the gastrointestinal system. : No deficits noted. No signs and/or symptoms were reported regarding the genitourinary system. EENT: No deficits noted. No signs and/or symptoms were reported regarding the EENT system. Derm: No deficits noted. No signs and/or symptoms reported regarding the dermatologic system. Musculoskeletal: Reports pain in back. 02/21 00:30 Reassessment: Patient appears in no apparent distress at this time. Patient and/or pf1 family updated on plan of care and expected duration. Pain level reassessed. 01:00 Reassessment: Patient and/or family updated on plan of care and expected duration. Pain ha1 level reassessed. Patient is alert, oriented x 3, equal unlabored respirations, skin warm/dry/pink. 02:00 Reassessment: Patient appears in no apparent distress at this time. Patient and/or pf1 family updated on plan of care and expected duration. Pain level reassessed. Patient states symptoms have improved. 02:25 Reassessment: Ozz[facility] from [facility] stated ETA 25-30 minutes for [facility]. pf1 03:00 Reassessment: Patient appears in no apparent distress at this time. Patient and/or pf1 family updated on plan of care and expected duration. Pain level reassessed. Patient states symptoms have improved. Vital Signs: 02/20 23:26 BP 148 / 63; Pulse 74; Resp 16; Temp 98.5; Pulse Ox 98% on R/A; Weight 62 kg; Pain 5/10;pf1 02/21 00:00 BP 155 / 64; Pulse 77; Resp 18 S; Pulse Ox 96% on R/A; ha1 01:00 BP 114 / 68; Pulse 76; Resp 18 S; Pulse Ox 97% on R/A; ha1 02:00 BP 116 / 70; Pulse 79; Resp 16; Pulse Ox 98% on R/A; Pain 0/10; pf1 03:00 BP 113 / 69; Pulse 79; Resp 17; Temp 98; Pulse Ox 98% ; pf1 02/20 23:26 Pain Scale: Adult pf1 02:00 Pain Scale: Adult pf1 ED Course: 02/20 23:20 Patient arrived in ED. [id number] 23:21 Patient has correct armband on for positive identification. Placed in gown. Bed in low ha1 position. Call light in reach. Side rails up X2. 23:21 Arm band placed on right wrist. pf1 23:23 Lakeisha Drummond MD is Attending Physician. sp3 23:34 Triage completed. pf1 02/21 00:04 Basic Metabolic Panel Sent. pf1 00:04 CBC with Diff Sent. pf1 00:04 Troponin HS Sent. pf1 00:04 Inserted saline lock: 22 gauge in right antecubital area, using aseptic technique. pf1 Blood collected. 00:15 CXR XRAY In Process Unspecified. EDMS 00:21 CT Head C Spine In Process Unspecified. EDMS 03:18 No provider procedures requiring assistance completed. IV discontinued, intact, pf1 bleeding controlled, No redness/swelling at site. Pressure dressing applied. 03:23 Lumbar Spine (1 view) XRAY In Process Unspecified. EDMS Administered Medications: No medications were administered Medication: 01:12 VIS not applicable for this client. ha1 Outcome: 02:02 Discharge ordered by . sp3 02:35 Discharged to [facility]. Report called to RAMILA Horne pf1 02:35 Condition: improved 02:35 Discharge instructions given to [facility], 03:20 Patient left the ED. pf1 Signatures: Dispatcher [employer] EDLakeisha Tse MD MD sp3 Karen [id number] Charmaine Paris RN RN ha1 Alexandra Eid RN RN pf1 Corrections: (The following items were deleted from the chart) 02/20 23:35 23:34 PMHx: Radiculopathy; pf1 pf1
[2023-02-21 05:26] VITALS: O2SAT 98
[2023-02-21 05:28] VITALS: BP 113/69; TEMP 98
--- NOTE | 2023-02-21 14:02 | RAD REPORT ---
EXAM DESCRIPTION: RAD - Lumbar Spine - Single View - 02/21/2023 12:49 am CLINICAL HISTORY: The patient is 77 years old and is Female; fall/trauma TECHNIQUE: Single view of the spine. COMPARISON: No relevant prior studies available. FINDINGS: Vertebrae: See below. Disc spaces: Degenerative changes in the hips. Disc space narrowing with degenerative endplate changes in the spine most prominent at L5-S1. Soft tissues: Unremarkable. IMPRESSION: No acute findings in the spine. Electronically signed by: Francis Aguilar MD 02/21/2023 01:06 AM FIELD ARTILLERY CANNONEER Due to temporary technical issues with the PACS/Fluency reporting system, reports are being signed by the in house radiologist without review as a courtesy to ensure prompt reporting. The interpreting r adiologist is fully responsible for the content of the report.
--- NOTE | 2023-02-21 14:09 | RAD REPORT ---
EXAM DESCRIPTION: CT - Head C Spine Mpr Wo Con - 02/21/2023 2:02 am CLINICAL HISTORY: 77-year-old female status post fall trauma. COMPARISON: 10/02/2022. TECHNIQUE: CT brain without contrast. This exam was performed according to our departmental dose opt imization program which includes use of automated exposure control, adjustment of the mA and/or kV ac cording to patient size and/or use of iterative reconstruction technique. FINDINGS: Multifocal regions of patchy hypoattenuation are present in a subcortical and periventricu lar deep white matter distribution, nonspecific; however, most likely represent small vessel ischemic disease, age indeterminate. The ventricles, and sulci are prominent compatible with underlying volume loss. The zheng-white justyna er differentiation is preserved. There is no mass effect, midline shift, intra- or extra-axial flui d collection/acute hemorrhage. The osseous structures are unremarkable. The paranasal sinuses and mastoid air cells are clear. IMPRESSION: 1. No acute intracranial abnormalities. Nonspecific white matter change most likely sm all vessel ischemic disease, age indeterminate. 2. CT is insensitive for early evaluation of acute stroke. If there is clinical concern for acute ischemia, an MRI may be considered. TECHNIQUE: Cervical spine CT was performed without contrast. Multiplanar reformatted images were pro vided. This exam was performed according to our departmental dose optimization program which includes use of automated exposure control, adjustment of the mA and/or kV according to patient size and/or u se of iterative reconstruction technique. COMPARISON: None. FINDINGS: The bones appear to be diffusely demineralized. There is normal alignment of the cervical spine without fracture or subluxation. The facets are cheyanne l in alignment bilaterally. The posterior elements including the spinous processes are intact. Straig htening of the cervical spine which may be secondary to positioning for the examination. Morphology and attenuation of the vertebral bodies and intervertebral disk spaces is compatible with multilevel degenerative change. Multilevel loss of vertebral body height. Multilevel posterior osseous spurring results in neuroforam inal narrowing throughout the cervical spine. Posterior osseous spurring and disc bulge results in mild effacement of the ventral thecal sac at the C5-6 vertebral level. The pre-and paravertebral soft tissues are within normal limits. IMPRESSION: 1. Straightening of the cervical spine which may be secondary to positioning for the exa mination versus spasm. 2. No fracture or acute subluxation. Electronically signed by: Akua Little MD 02/21/2023 12:37 AM PATIENT CARE TECHNICIAN Due to temporary technical issues with the PACS/Fluency reporting system, reports are being signed by the in house radiologist without review as a courtesy to ensure prompt reporting. The interpreting r adiologist is fully responsible for the content of the report.
--- NOTE | 2023-02-22 11:17 | RAD REPORT ---
EXAM DESCRIPTION: RAD - Chest Single View - 02/21/2023 12:13 am CLINICAL HISTORY: TRAUMA COMPARISON: None. FINDINGS: Single frontal radiograph view of the chest. Cardiomediastinal silhouette: Atherosclerotic calcification of thoracic aorta. Heart is not enlarged. Lungs: No consolidation, pneumothorax, or pleural effusion. Bones: Degenerative changes of the shoulders and spine. Upper abdomen: No abnormality identified. IMPRESSION: 1. No acute pulmonary process identified. Electronically signed by: Sachin Chaparro DO 02/21/2023 12:33 AM SEAT NAILER M Due to temporary technical issues with the PACS/Fluency reporting system, reports are being signed by the in house radiologist without review as a courtesy to ensure prompt reporting. The interpreting r adiologist is fully responsible for the content of the report.
--- NOTE | 2023-02-22 17:26 | EKG ---
Test Date: 2023-02-21 Test Time: 00:00:16 Fishing Hand: VALENCIA MEASUREMENT RESULTS: Intervals: Rate: 73 IA: 148 QRSD: 84 QT: 412 QTc: 453 Milfay: P: 74 IA: 148 QRS: 24 T: 40 INTERPRETIVE STATEMENTS: Normal sinus rhythm with sinus arrhythmia Normal ECG No previous ECG available for comparison Electronically Signed On 02-22-23 17:21:25 CAPTAIN ROOM SERVICE by Biju Harris
== END 2023-02-21 03:20 | disposition home or self-care (01) ==
LOC: ER 23:20
DX: Z04.3 Encounter for examination and observation following other accident (principal); W18.30XA Fall on same level, unspecified, initial encounter
CPT/HCPCS: 36415; 70450; 71045; 72020; 72125; 80048; 82550; 84484; 85025; 93005; 99284

== ENCOUNTER 2023-03-03 08:43 | Observation (INO) | payer OTHER, MEDICARE ==
--- OUTSIDE RECORDS SUMMARY | 2023-03-03 08:45 | XMS REPORT | Continuity of Care Document ---
:1945 Author Organization [facility] t Address [address] [facility] [address] [place] [address] Care Team Providers Name Role Phone Marie SMITH, Jt Alcantara Primary Care Physician Iván ELW, Bharti Attending Clinician Unavailable Damián RN, Vee Attending Clinician Unavailable Tiago SMITH, Morgan Kauffman Attending Clinician Payers Payer Name Policy Type Policy Number Effective Date Expiration Date S ource Problems This patient has no known problems. Allergies, Adverse Reactions, Alerts This patient has no known allergies or adverse reactions. Family History Family Member Diagnosis Comments Start Date Stop Date Source Natural sister Schizophrenia [facility] sister Lupus [facility] Natural sister Heart disease [facility] Natural sister Frontotemporal [facility] dementia [facility] son [facility] Natural daughter [facility] Natural father Alzheimer's disease [facility] Social History Social Habit Start Date Stop Date Quantity Comments Source Gender identity 2020-11-09 Identifies as [facility] 12:12:03 female gender [facility] (finding) Sexual orientation 2020-11-09 Heterosexual [facility]ist 12:12:03 (finding) Hospital History of tobacco Cigarette Smoker [facility] use Hospital Alcohol intake 2022-01-05 2022-01-05 Lifetime Zoroastrianism 00:00:00 00:00:00 non-drinker [facility] (finding) History of Social 2022-01-05 2022-01-[address] function 00:00:00 00:00:00 Hospital Tobacco use and 2020-11-09 2020-11-09 Smokeless tobacco [facility] exposure 00:00:00 00:00:00 non-user Hospital Cigarettes smoked 2020-11-09 2020-11-[address] current (pack per 00:00:00 00:00:00 Hospita l day) - Reported Cigarette 2020-11-09 2020-11-09 [facility]oroastrianism pack-years 00:00:00 00:00:00 Hospital Tobacco Comment 2020-11-09 2020-11-09 Over 30 years ago [facility] 00:00:00 00:00:00 Hospital Sex Assigned At [birth year] F [facility]astrianism 00:00:00 00:00:00 Hospital Smoking Status Start Date Stop Date Source Ex-smoker 2020-11-09 00:00:00 2020-11-09 00:00:00 Method t [facility] Medications Ordered Filled Start Stop Current Ordering Indication Dosage Frequency Signature Comments Components Source Medication Medication Date Date Medication? Clinician (SIG) Name Name DULoxetine 2022-04 Yes [id number] TAKE 1 [facility] (CYMBALTA) 0-[address] 30 MG 00:00: MOUTH ONCE Hospit a capsule 00 DAILY WITH l 60MG, TO EQUAL 90MG DAILY DULoxetine 2022-04 Yes [id number] TAKE 1 [facility] (CYMBALTA) 0-04 CAPSULE BY [...] daily. l tablet gabapentin 2022-0 Yes 400mg Q.[id number] Take 400 [facility] (NEURONTIN) 9-28 [id number] mg by s t 400 mg 09:39: [...] tablet mouth daily. 4 x a day acetaminoph 2022-0 Yes 2000mg QD Take 4 [facility] en 9-[address] (TYLENOL) 09:39: (2,000 mg Hos aldair 500 MG 30 total) by l tablet mouth daily. 4 x a day levothyroxi 2022-0 Yes 112ug QD Take 112 M ethodi ne 9-[address] (SYNTHROID) 09:39: mouth Hospi ta 112 mcg 30 daily. l tablet gabapentin 2021-0 Yes 400mg Q.[id number] Take 400 [facility] (NEURONTIN) 9-28 [id number] mg by s t 400 mg 09:39: 3D mouth 3 Hospita capsule 30 (three) l times a day. ibuprofen 2-0 Yes 200mg Q6H Take 200 Met hodi [...] daily. l tablet gabapentin 2022-0 Yes 400mg Q.[id number] Take 400 [facility] (NEURONTIN) 9-28 [id number] mg by s t 400 mg 09:39: [...] mouth daily. 4 x a day levothyroxi 2021-0 Yes 112ug QD Take 112 M ethodi ne 9-[address] (SYNTHROID) 09:39: mouth Hospi ta 112 mcg 30 daily. l tablet gabapentin 2021-0 Yes 400mg Q.[id number] Take 400 [facility] (NEURONTIN) 9- [id number] mg by s t 400 mg 09:39: 3D mouth 3 Hospita capsule 30 (three) l times a day. ibuprofen 2021-0 Yes 200mg Q6H Take 200 Met hodi (ADVIL) 200 9-[address] MG tablet 09:39: mouth Hospita 30 every 6 l (six) hours as needed. Takes 2 per day DULoxetine 2021-0 Yes [id number] 60mg QD Take 1 [facility] (CYMBALTA) 01-[address] 60 MG 00:00: (60 mg Hospita capsule 00 total) by l mouth daily. (Take with 30 mg to make a total dose of 90 mg daily) DULoxetine 2021-0 Yes [id number] 60mg QD Take 1 [facility] (CYMBALTA) 01-[address] 60 MG 00:00: (60 mg Hospita capsule 00 total) by l mouth daily. (Take with 30 mg to make a total dose of 90 mg daily) DULoxetine 2021-0 Yes [id number] TAKE 1 [facility] (CYMBALTA) 9- CAPSULE BY st 30 MG 00:00: MOUTH Hospita capsule 00 EVERY DAY l WITH 60 MG TO MAKE 90 MG / DAY DULoxetine 2021-0 Yes [id number] 60mg QD Take 1 [facility] (CYMBALTA) 9- capsule st 60 MG 00:00: (60 mg Hospita capsule 00 total) by l mouth daily. (Take with 30 mg to make a total dose of 90 mg daily) DULoxetine Yes [id number] TAKE 1 [facility] (CYMBALTA) 01-[address] 30 MG 00:00: MOUTH Hospita capsule 00 EVERY DAY l WITH 60 MG TO MAKE 90 MG / DAY DULoxetine Yes [id number] 60mg QD Take 1 [facility] (CYMBALTA) 01-[address] 60 MG 00:00: (60 mg Hospita capsule 00 total) by l mouth daily. (Take with 30 mg to make a total dose of 90 mg daily) DULoxetine 3- No [id number] TAKE 1 [facility] (CYMBALTA) 01-05 10- CAPSULE BY st 30 MG 00:00: 00:00 MOUTH Hospita capsule 00 :00 EVERY DAY l WITH 60 MG TO MAKE 90 MG / DAY DULoxetine 3- No [id number] TAKE 1 [facility] (CYMBALTA) 01-05 10-[address] 30 MG 00:00: 00:00 MOUTH Hospita capsule 00 :00 EVERY DAY l WITH 60 MG TO MAKE 90 MG / DAY memantine Yes [id number] TAKE 1 M ethodi (NAMENDA) 8-[address] 10 MG 00:00: MOUTH Hospita tablet 00 TWICE A l DAY memantine 0 Yes [id number] TAKE 1 M ethodi (NAMENDA) 8-[address] 10 MG 00:00: MOUTH Hospita tablet 00 TWICE A l DAY memantine 0 Yes [id number] TAKE 1 M [facility] (NAMENDA) 8-[address] 10 MG 00:00: MOUTH Hospita tablet 00 TWICE A l DAY memantine 2021-0 Yes [id number] TAKE 1 M ethodi (NAMENDA) 8-[address] 10 MG 00:00: MOUTH Hospita tablet 00 TWICE A l DAY donepeziL 2021-0 Yes [id number] TAKE 1 M ethodi (ARICEPT) 5-[address] 10 MG 00:00: MOUTH Hospita tablet 00 EVERY DAY l AT NIGHT donepeziL 2021-0 Yes [id number] TAKE 1 M ethodi (ARICEPT) 5-[address] 10 MG 00:00: MOUTH Hospita tablet 00 EVERY DAY l AT NIGHT donepeziL Yes [id number] TAKE 1 M ethodi (ARICEPT) 5-[address] 10 MG 00:00: MOUTH Hospita tablet 00 EVERY DAY l AT NIGHT donepeziL Yes [id number] TAKE 1 M ethodi (ARICEPT) 5-[address] 10 MG 00:00: MOUTH Hospita tablet 00 EVERY DAY l AT NIGHT DULoxetine 2021- No [id number] TAKE 1 [facility] (CYMBALTA) 08-[address] 60 MG 00:00: 00:00 MOUTH Hospita capsule 00 :00 EVERY DAY l WITH 30 MG TO MAKE 90 MG / DAY DULoxetine 2021- No [id number] TAKE 1 [facility] (CYMBALTA) 08-[address] 60 MG 00:00: 00:00 MOUTH Hospita capsule 00 :00 EVERY DAY l WITH 30 MG TO MAKE 90 MG / DAY memantine 2021- No [id number] TAKE 1 [facility] (NAMENDA) 05-[address] 10 MG 00:00: 00:00 MOUTH Hospita tablet 00 :00 TWICE A l DAY memantine 2021- No [id number] TAKE 1 [facility] (NAMENDA) 05-31- TABLET BY st 10 MG 00:00: 00:00 MOUTH Hospita tablet 00 :00 TWICE A l DAY DULoxetine 2020-04- No [id number] TAKE 1 [facility] (CYMBALTA) 04-[address] 30 MG 00:00: 00:00 MOUTH Hospita capsule 00 :00 EVERY DAY l WITH 60 MG TO MAKE 90 MG / DAY DULoxetine 2020-04- No [id number] TAKE 1 [facility] (CYMBALTA) 04-27 CAPSULE BY [...] day. Takes 2 x a day traMADoL Yes 50mg Q.5D Take 1 [facility] [...] Source Respiratory rate 2022-01-05 14:07:00 11 /min [facility] Body height 2022-01-05 14:07:00 162.6 cm [facility] Body weight 2022-01-05 14:07:00 53.343 kg [facility] BMI 2022-01-05 14:07:00 20.19 kg/m2 [facility] Procedures This patient has no known procedures. Plan of Care Planned Activity Planned Date Details Comments Source Future Scheduled 2023-02-16 Hepatitis C screening [facility] Test 16:09:08 (procedure) [code = 800696248] Future Scheduled 2023-02-16 SHINGLES VACCINES (1 [facility] Test 16:09:08 of 2) [code = SHINGLES VACCINES (1 of 2)] Future Scheduled 2023-02-16 65+ PNEUMOCOCCAL [facility] Test 16:09:08 VACCINE (1 - PCV) [code = 65+ PNEUMOCOCCAL VACCINE (1 - PCV)] Future Scheduled 2023-02-16 COVID-19 VACCINE (3 - [facility] Test 16:09:08 season) [code = COVID-19 VACCINE (3 - season)] Future Scheduled 2023-02-16 INFLUENZA VACCINE (#1) [facility] Test 16:09:08 [code = INFLUENZA VACCINE (#1)] Future Scheduled 2023-02-16 Hepatitis C screening [facility] Test 16:09:08 (procedure) [code = 121932269] Future Scheduled 2023-02-16 SHINGLES VACCINES (1 [facility] Test 16:09:08 of 2) [code = SHINGLES VACCINES (1 of 2)] Future Scheduled 2023-02-16 65+ PNEUMOCOCCAL [facility] Test 16:09:08 VACCINE (1 - PCV) [code = 65+ PNEUMOCOCCAL VACCINE (1 - PCV)] Future Scheduled 2023-02-16 COVID-19 VACCINE (3 - [facility] Test 16:09:08 season) [code = COVID-19 VACCINE (3 - season)] Future Scheduled 2023-02-16 [facility]ACCINE (#[facility] Test 16:09:08 [code = INFLUENZA VACCINE (#1)] Future Scheduled 2022-09-25 Hepatitis C screening [facility] Test 14:35:33 (procedure) [code = 840152956] Future Scheduled 2022-09-25 SHINGLES VACCINES (1 [facility] Test 14:35:33 of 2) [code = SHINGLES VACCINES (1 of 2)] Future Scheduled 2022-09-25 65+ [facility] Test 14:35:33 VACCINE (1 - PCV) [code = 65+ PNEUMOCOCCAL VACCINE (1 - PCV)] Future Scheduled 2022-09-25 COVID-19 VACCINE (3 - [facility] Test 14:35:33 Pfizer series) [code = COVID-19 VACCINE (3 - Pfizer series)] Future Scheduled 2022-09-[address] [facility] Test 14:35:33 [code = INFLUENZA VACCINE] Future Scheduled 2022-09-25 Hepatitis C screening [facility] Test 14:35:33 (procedure) [code = 868041196] Future Scheduled 2022-09-25 SHINGLES VACCINES (1 [facility] Test 14:35:33 of 2) [code = SHINGLES VACCINES (1 of 2)] Future Scheduled 2022-09-25 65+ [facility]CCAL [facility] Test 14:35:33 VACCINE (1 - PCV) [code = 65+ PNEUMOCOCCAL VACCINE (1 - PCV)] Future Scheduled 2022-09-25 COVID-19 VACCINE (3 - [facility] Test 14:35:33 Pfizer series) [code = COVID-19 VACCINE (3 - Pfizer series)] Future Scheduled 2022-09-[address] [facility] Test 14:35:33 [code = INFLUENZA VACCINE] Encounters Start End Encounter Admission Attending Care Care Encounter Source Date/Time Date/Time Type Type Clinicians Facility Department ID 2023-01-31 2023-01-31 Social Axline, 1.2.840.1 [id number] [facility] 00:00:00 00:00:00 Work Bharti [address] 3.430.2.7 Hospit a .3.325884 l .8 2023-01-31 2023-01-31 Orders Jinnah, 1.2.840.1 [id number] [facility] 00:00:00 00:00:00 Only Vee 46854.1.[address] 3.430.2.7 Hospit a .3.373411 l .8 2023-01-31 2023-01-31 Social Axline, 1.2.840.1 [id number] [facility] 00:00:00 00:00:00 Work Bharti [address]3217.1.[address] 3.430.2.7 Hospit a .3.547589 l .8 2023-01-31 2023-01-31 Orders Jinnah, 1.2.840.1 [id number] [facility] 00:00:00 00:00:00 Only Catrachitaadigricel 65923.1.[address] 3.430.2.7 Hospit a .3.532143 l .8 2023-01-08 2023-01-08 Refill Nakawa, 1.2.840.1 [id number] [facility] 00:00:00 00:00:[address] [place] 3.430.2.7 Hospit a .3.002205 l .8 2023-01-08 2023-01-08 Refill Nakawa, 1.2.840.1 [id number] [facility] 00:00:00 00:00:[address] [place] 3.430.2.7 Hospit a .3.386227 l .8 2022-12-19 2022-12-[address] [facility], 1.2.840.1 [id number] [facility] 00:00:00 00:00:[address] [place] 3.430.2.7 Hospit a .3.991293 l .8 2022-12-19 2022-12-[address] [facility], 1.2.840.1 [id number] [facility] 00:00:00 00:00:[address] [place] 3.430.2.7 Hospit a .3.835781 l .8 2022-01-05 2022-01-[address] [facility], 1.2.840.1 [id number] [facility] 10:00:00 10:11:50 ne Mohammad 71987.1.[address] [place] 3.430.2.7 Hospit a .3.777456 l .8 2021-11-26 2021-11-[address] [facility], 1.2.840.1 [id number] [facility] 00:00:00 00:00:[address] [place] 3.430.2.7 Hospit a .3.620544 l .8 2021-10-27 2021-10-27 [facility] [id number] [facility] 00:00:00 00:00:00 Work Bharti 62796.1.[address] 3.430.2.7 Hospit a .3.105363 l .8 2021-10-12 2021-10-12 [facility], 1.2.840.1 [id number] [facility] 00:00:00 00:00:[address] [place] 3.430.2.7 Hospit a .3.189859 l .8 2021-07-05 2021-07-05 Outpatient [facility] [id number] [place] 00:00:00 00:00:00 M[address] 2020-11-10 2020-11-10 Outpatient [facility] [id number] [place] 00:00:00 00:00:00 MOHAMMAD [address] 2020-07-22 2020-07-22 Outpatient PAM [facility] [id number] [place] 00:00:00 00:00:00 MOHAMMAD [address] 2020-07-22 2020-07-22 Outpatient PAM [facility] [id number] [place] 00:00:00 00:00:00 MOHAMMAD [address] 2020-07-22 2020-07-22 Outpatient [facility] [id number] [place] 00:00:00 00:00:[address] 2020-03-16 2020-03-16 Outpatient [facility] [id number] [place] 00:00:00 00:00:00 MOHAMM[address] Results This patient has no known results.
[2023-03-03 09:08] LABS: Hematocrit 36.8 % (36.0-45.0); Lymphocytes % 22.6 % (15.3-44.8); MCV 88.7 fL (80-100); MPV 8.1 fL (7.6-11.3); Platelets 288 thou/uL (152-406); RBC Red Blood Cell Count 4.14 M/uL (3.86-4.86)
--- NOTE | 2023-03-03 09:20 | RAD REPORT ---
EXAM DESCRIPTION: CT - Head Brain Wo Cont - 03/03/2023 9:11 am CLINICAL HISTORY: Alteration of awareness/confusion COMPARISON: September 2022 TECHNIQUE: Computed axial tomography of the head was obtained. IV contrast was not requested. All CT scans are performed using dose optimization technique as appropriate and may include automated exposure control or mA/KV adjustment according to patient size. FINDINGS: An intracranial bleed is not seen The ventricles are normal in caliber No extra-axial fluid collection is noted. Mild to moderate cerebral atrophy. No significant hypodensity within the brain noted Fluid within the sinuses/ mastoids is not seen. IMPRESSION: No acute intracranial abnormality is seen If patient's symptoms persist MRI of the brain would be recommended
[2023-03-03 09:36] LABS: Bilirubin Direct 0.1 mg/dL (0-0.2); Bilirubin Indirect, Calculated 0.4 mg/dL (0.2-0.8); Bilirubin Total 0.5 mg/dL (0.2-1.0); Magnesium 2.4 mg/dL (1.6-2.4); Protein, Total 6.5 g/dL (6.4-8.2); Troponin High Sensitivity 47.2 pg/mL (<58.9)
[2023-03-03] MEDS ORDERED: NA CHLORIDE 0.9% 1,000 ML ONE (10:35)
[2023-03-03] MEDS ORDERED: LORazepam 2 MG/ML VIAL ONE (12:00)
[2023-03-03] MEDS ORDERED: levETIRAcetam 1,000 MG in NA CHLORIDE 0.9% 100 ML IV ONE (12:15)
--- NOTE | 2023-03-03 12:29 | EDPHYS ---
Physician Documentation [facility] Name: Janna Brannon Age: 77 yrs Sex: Female : 1945 Arrival Date: 03/03/2023 Time: 08:28 Bed 3 Private MD: ED Physician Lakeisha Drummond HPI: 03/03 09:08 This 77 yrs old Female presents to ER via EMS with complaints of Unresponsive, Altered sp3 Mental Status. 09:08 77-year-old female with history of Alzheimer's, hyperlipidemia, hypothyroidism, sp3 osteoarthritis on tramadol now presents to the ED via EMS from assisted living facility secondary to being found "unresponsive" with possible seizure activity. EMS found arrives similar response patient who had pinpoint pupils and became arousable after 0.4 mg of Narcan IV. Facility denies medication except for extra dose of tramadol. Review of systems, history and physical severely limited secondary to patient having dementia and being nonverbal.. Historical: - Allergies: 08:50 Bactrim; kc6 - PMHx: 08:50 Alzheimer's disease; Hypercholesterolemia; Hypothyroidism; osteoarthritis; kc6 Radiculopathy; THYROID CANCER; - Immunization history:: Adult Immunizations unknown. - Social history:: Smoking status: Patient denies any tobacco usage or history of. ROS: 09:09 Unable to obtain ROS due to baseline dementia, sp3 Exam: 09:09 Constitutional: This is a well developed, well nourished patient who is awake, alert, sp3 and in no acute distress. Head/Face: Normocephalic, atraumatic. Eyes: Pupils equal round and reactive to light, extra-ocular motions intact. Lids and lashes normal. Conjunctiva and sclera are non-icteric and not injected. Cornea within normal limits. Periorbital areas with no swelling, redness, or edema. Neck: Trachea midline, no thyromegaly or masses palpated, and no cervical lymphadenopathy. Supple, full range of motion without nuchal rigidity, or vertebral point tenderness. No Meningismus. Chest/axilla: Normal chest wall appearance and motion. Nontender with no deformity. No lesions are appreciated. Cardiovascular: Regular rate and rhythm with a normal S1 and S2. No gallops, murmurs, or rubs. Normal PMI, no JVD. No pulse deficits. Respiratory: Lungs have equal breath sounds bilaterally, clear to auscultation and percussion. No rales, rhonchi or wheezes noted. No increased work of breathing, no retractions or nasal flaring. Abdomen/GI: Soft, non-tender, with normal bowel sounds. No distension or tympany. No guarding or rebound. No evidence of tenderness throughout. Skin: Warm, dry with normal turgor. Normal color with no rashes, no lesions, and no evidence of cellulitis. 09:09 Neuro: Neuro exam grossly intact. Patient moving all extremities does not appear to have any unilateral weakness. No facial droop noted. Patient is nonverbal. Gait not tested., 09:11 ECG was reviewed by the Attending Physician. EKG demonstrates normal sinus rhythm at 74 sp3 bpm with normal intervals, normal QRS, normal axis, nonspecific diffuse ST/T changes without evidence of acute ischemia. Vital Signs: 08:48 BP 152 / 79; Pulse 75; Resp 16 S; Pulse Ox 97% on R/A; Weight 60 kg (M); kc6 09:16 Temp 97.4(TE); ph 10:00 BP 132 / 78; Pulse 91; Resp 19; Pulse Ox 95% on R/A; ph 11:00 BP 134 / 71; Pulse 95; Resp 18; Pulse Ox 95% on R/A; ph 12:00 BP 137 / 72; Pulse 94; Resp 18; Pulse Ox 94% on R/A; ph 13:00 BP 126 / 72; Pulse 92; Resp 14; Pulse Ox 95% on R/A; ph 14:00 BP 146 / 85; Pulse 85; Resp 18; Pulse Ox 96% on R/A; ph MDM: 08:48 Patient medically screened. sp3 09:10 Data reviewed: vital signs, nurses notes, lab test result(s), EKG, radiologic studies. sp3 ED course: 77-year-old female with Alzheimer's and multiple other medical problems that presents via EMS secondary to decreased responsiveness now resolved after Narcan. Patient continues to be fully awake. Will obtain CT scan of the head, laboratory values, EKG and general observation. If work-up is negative and there are no significant findings, we will safely discharge patient back home.. 12:14 ED course: Patient has had 2 seizures while in the ED. Ativan given and Keppra loaded. sp3 This likely represents for altered mental status. I do not believe the tramadol caused this. We will admit patient to the hospital and I have already spoken to Dr. Miranda who will be seeing her in consultation.. 03/03 08:50 Order name: Basic Metabolic Panel; Complete Time: 09:38 sp3 03/03 08:50 Order name: CBC with Diff; Complete Time: 09:26 sp3 03/03 08:50 Order name: LFT's; Complete Time: 09:38 sp3 03/03 08:50 Order name: Magnesium; Complete Time: 09:38 sp3 03/03 08:50 Order name: NT PRO-BNP; Complete Time: 09:38 sp3 03/03 08:50 Order name: Troponin HS; Complete Time: 09:38 sp3 03/03 08:50 Order name: Lactate w/ 2H reflex if indic.; Complete Time: 09:38 sp3 03/03 12:15 Order name: Lactate Sepsis 2 HR Follow-up; Complete Time: 12:18 EDMS 03/03 12:29 Order name: UAM; Complete Time: 08:04 sp3 03/04 05:12 Order name: CBC with Automated Diff; Complete Time: 08:04 EDMS 03/04 05:34 Order name: Basic Metabolic Panel; Complete Time: 08:04 EDMS 03/04 05:34 Order name: T4 Free; Complete Time: 08:04 EDMS 03/04 05:34 Order name: Magnesium; Complete Time: 08:04 EDMS 03/04 05:34 Order name: Thyroid Stimulating Hormone; Complete Time: 08:04 EDMS 03/03 08:50 Order name: CT Head Brain wo Cont; Complete Time: 09:26 sp3 03/04 13:44 Order name: CXR XRAY sp3 03/03 08:50 Order name: EKG; Complete Time: 08:50 sp3 03/03 13:47 Order name: Social Service Consult EDCA 03/03 08:50 Order name: Cardiac monitoring; Complete Time: 08:53 sp3 03/03 08:50 Order name: EKG - Nurse/Tech; Complete Time: 09:02 sp3 03/03 08:50 Order name: IV Saline Lock; Complete Time: 08:53 sp3 03/03 08:50 Order name: Labs collected and sent; Complete Time: 09:02 sp3 03/03 08:50 Order name: O2 Per Protocol; Complete Time: 08:53 sp3 03/03 08:50 Order name: O2 Sat Monitoring; Complete Time: 08:53 sp3 Administered Medications: 10:30 Drug: NS 0.9% IV 1000 ml IV at 1 bolus Per protocol; 1000 mL bolus Route: IV; Rate: 1 ph bolus; Site: left antecubital; 11:30 Follow up: Response: No adverse reaction; IV Status: Completed infusion ph 11:51 Drug: Ativan IVP 1 mg IVP once Route: IVP; Site: left antecubital; ph 12:15 Follow up: Response: No adverse reaction ph 12:26 Drug: Keppra IV 1000 mg IV at calculated rate once Route: IV; Rate: calculated rate; ph Site: left antecubital; 13:00 Follow up: Response: No adverse reaction; IV Status: Completed infusion ph Disposition Summary: 03/03/23 12:28 Hospitalization Ordered Notes: Hospitalization Status: Inpatient Admission sp3 Provider: Hakeem Rivera sp3 Condition: Stable sp3 Problem: new sp3 Symptoms: have worsened sp3 Bed/Room Type: Standard sp3 [facility]03[facility]03[facility]23 14:38[facility] em1 Room Assignment: ERHOLD-(03/03/23 14:38) em1 Diagnosis - Altered mental status, multiple seizures sp3 Forms: - Medication Reconciliation Form sp3 - SBAR form sp3 - Leadership Thank You Letter sp3 Signatures: Dispatcher [employer] Jesus Ernandez em1 Dago Franks, COORDINATOR [employer]-C COORDINATOR [employer]-Cla1 Letitia Montoya RN RN Lakeisha Drummond MD MD sp3 Meka Puente RN RN kc6 Corrections: (The following items were deleted from the chart) 08:51 08:50 PMHx: Radiculopathy; kc6 kc6 08:51 08:50 PMHx: Radiculopathy; kc6 kc6 08:51 08:50 PMHx: Radiculopathy; kc6 kc6 14:38 12:28 Telemetry/MedSurg (Inpatient) sp3 em1 14:38 12:28 sp3 em1
--- NOTE | 2023-03-03 12:29 | ER ---
Nurse's Notes [facility] Name: Janna Brannon Age: 77 yrs Sex: Female : 1945 Arrival Date: 03/03/2023 Time: 08:28 Bed 3 Private MD: Diagnosis: Altered mental status, multiple seizures Presentation: 03/03 08:48 Chief complaint: EMS states: pt is from [facility] and was found unresponsive with a pulse kc6 by staff this AM at the breakfast table with suspected seizure like activity. 0.5mg of narcan given by EMS. BGL 137. Coronavirus screen: At this time, the client does not indicate any symptoms associated with coronavirus-19. Ebola Screen: No symptoms or risks identified at this time. Initial Sepsis Screen: Does the patient meet any 2 criteria? No. Patient's initial sepsis screen is negative. Does the patient have a suspected source of infection? No. Patient's initial sepsis screen is negative. Risk Assessment: Do you want to hurt yourself or someone else? Unable to obtain. Onset of symptoms was March 03, 2023. 08:48 Method Of Arrival: EMS: [facility] kc6 08:48 Acuity: ROSIE 2 kc6 Triage Assessment: 08:50 General: Appears in no apparent distress. comfortable, Behavior is calm. Pain: Unable kc6 to use pain scale. Patient is disoriented. FLACC scale score is 0 out of 10. EENT: No signs and/or symptoms were reported regarding the EENT system. Neuro: Level of Consciousness is confused, Oriented to none Moves all extremities. Full function Facial symmetry appears normal, Pupils are PERRLA. Cardiovascular: Capillary refill < 3 seconds. Respiratory: Airway is patent Trachea midline Respiratory effort is even, unlabored, Respiratory pattern is regular, symmetrical. GI: No signs and/or symptoms were reported involving the gastrointestinal system. : No signs and/or symptoms were reported regarding the genitourinary system. Derm: No signs and/or symptoms reported regarding the dermatologic system. Skin is intact, is healthy with good turgor, Skin is pink, warm \T\ dry. Musculoskeletal: No signs and/or symptoms reported regarding the musculoskeletal system. Circulation, motion, and sensation intact. Capillary refill < 3 seconds, Range of motion: intact in all extremities. Historical: - Allergies: 08:50 Bactrim; kc6 - PMHx: 08:50 Alzheimer's disease; Hypercholesterolemia; Hypothyroidism; osteoarthritis; kc6 Radiculopathy; THYROID CANCER; - Immunization history:: Adult Immunizations unknown. - Social history:: Smoking status: Patient denies any tobacco usage or history of. Screenin:52 [facility] ED Fall Risk Assessment (Adult) History of falling in the last 3 months, kc6 including since admission Yes- fall prone (multiple falls) (3 pts) Confusion or Disorientation Yes (5 pts) Intoxicated or Sedated No (0 pts) Impaired Gait Yes (1 pt) Mobility Assist Device Used Yes (1 pt) Altered Elimination No (0 pt) Score/Fall Risk Level 3 or more points = High Risk. Abuse screen: Denies threats or abuse. Denies injuries from another. Nutritional screening: No deficits noted. Tuberculosis screening: No symptoms or risk factors identified. Assessment: 08:53 Reassessment: please see triage assessment. kc6 09:52 Reassessment: Patient appears in no apparent distress at this time. No changes from kc6 previously documented assessment. Patient and/or family updated on plan of care and expected duration. Pain level reassessed. 11:45 Reassessment: Seizure like activity noted at this time, ERP notified, Ativan given. ph Vital Signs: 08:48 BP 152 / 79; Pulse 75; Resp 16 S; Pulse Ox 97% on R/A; Weight 60 kg (M); kc6 09:16 Temp 97.4(TE); ph 10:00 BP 132 / 78; Pulse 91; Resp 19; Pulse Ox 95% on R/A; ph 11:00 BP 134 / 71; Pulse 95; Resp 18; Pulse Ox 95% on R/A; ph 12:00 BP 137 / 72; Pulse 94; Resp 18; Pulse Ox 94% on R/A; ph 13:00 BP 126 / 72; Pulse 92; Resp 14; Pulse Ox 95% on R/A; ph 14:00 BP 146 / 85; Pulse 85; Resp 18; Pulse Ox 96% on R/A; ph ED Course: 08:47 Patient arrived in ED. ll1 08:48 Lakeisha Drummond MD is Attending Physician. sp3 08:49 Letitia Montoya RN is Primary Nurse. ph 08:50 Triage completed. kc6 08:50 Arm band placed on. kc6 08:52 Maintain EMS IV. Dressing intact. Good blood return noted. Site clean \T\ dry. Gauge \T\ lorne 6 site: 20G LAC. Patient maintains SpO2 saturation greater than 95% on room air. 08:53 Patient has correct armband on for positive identification. Placed in gown. Bed in low kc6 position. Call light in reach. Side rails up X2. Adult w/ patient. Client placed on continuous cardiac and pulse oximetry monitoring. NIBP monitoring applied. 09:12 CT Head Brain wo Cont In Process Unspecified. EDMS 09:37 Notified ED physician of a critical lab result(s). lactate 2.8. ll1 12:28 Hakeem Rivera MD is Hospitalizing Provider. sp3 14:45 No provider procedures requiring assistance completed. Patient admitted, IV remains in ph place. Administered Medications: 10:30 Drug: NS 0.9% IV 1000 ml IV at 1 bolus Per protocol; 1000 mL bolus Route: IV; Rate: 1 ph bolus; Site: left antecubital; 11:30 Follow up: Response: No adverse reaction; IV Status: Completed infusion ph 11:51 Drug: Ativan IVP 1 mg IVP once Route: IVP; Site: left antecubital; ph 12:15 Follow up: Response: No adverse reaction ph 12:26 Drug: Keppra IV 1000 mg IV at calculated rate once Route: IV; Rate: calculated rate; ph Site: left antecubital; 13:00 Follow up: Response: No adverse reaction; IV Status: Completed infusion ph Medication: 09:09 VIS not applicable for this client. ph Outcome: 12:28 Decision to Hospitalize by Provider. sp3 14:45 Admitted to ER Hold. Please see [facility] for further documentation. ph 14:45 Condition: stable 14:45 Instructed on the need for admit, 03/04 14:56 Patient left the ED. ph Signatures: Dispatcher [employer] Letitia An RN RN ph Theresa Childs RN RN ll1 Lakeisha Drummond MD MD sp3 Meka Puente RN RN kc6 Corrections: (The following items were deleted from the chart) 03/03 08:51 08:50 PMHx: Radiculopathy; kc6 kc6 08:51 08:50 PMHx: Radiculopathy; kc6 kc6 08:51 08:50 PMHx: Radiculopathy; kc6 kc6
--- NOTE | 2023-03-03 15:03 | P.HP ---
Certification for Inpatient Patient admitted to: Inpatient With expected LOS: >2 Midnights Patient will require the following post-hospital care: None Practitioner: I am a practitioner with admitting privileges, knowledge of patient current condition, hospital course, and medical plan of care. Services: Services provided to patient in accordance with Admission requirements found in Title 42 Section 412.3 of the Code of Federal Regulations Patient History Date of Service: 03/03/23 Reason for admission: New onset seizures History of Present Illness: 77-year-old female with history of Alzheimer's, hypothyroidism presents to the ER for altered mental status. [facility] and staff found her unresponsive at the breakfast table with her head slumped over this morning and reported possible seizure-like activity. There was some question of an extra dose of Tylenol so she was given 0.4 mg of Narcan without significant improvement and brought to the emergency department for further evaluation. During her initial stay in the emergency department she was back to her baseline, awake but nonverbal generally, she subsequently had 2 witnessed seizures by ED stafftonic-clonic in nature and was given IV Ativan and loaded with 1 g of Keppra. Of note patient was started on Rexulti approximately 1-1/2 months ago, recently had a dose titrated down but she seemed to be having some adverse effects, also took tramadol today. Her labs were significant for an initial lactic acid of 2.8 downtrending to 0.7 BNP 596 glucose [address] head negative for acute findings. ED physician discussed case with neurology who recommends admission, treatment with Keppra 500 mg twice daily. Allergies No Known Allergies Allergy (Verified 10/05/22 14:35) Home Medications: Donepezil HCl 10 mg PO BEDTIME 10/03/22 Duloxetine HCl 30 mg PO DAILY 10/03/22 Gabapentin 400 mg PO BID 10/03/22 Ibuprofen 200 mg PO DAILY PRN 10/03/22 Levothyroxine [Synthroid*] 125 mcg PO [id number] 10/03/22 Memantine HCl 10 mg PO BID 10/03/22 Pravastatin Sodium 20 mg PO BEDTIME 10/03/22 Tramadol HCl [Ultram] 50 mg PO BID 10/03/22 - Past Medical/Surgical History Diabetic: No -: Hypothyroidism -: alzheimer's -: lumbar radiculopathy -: osteoarthritis -: thyroid ca Past Surgical History: Unable to obtain Psychosocial/ Personal History: Lives at [facility] assisted living facility - Family History Family History: Reviewed- Non-Contributory - Social History Smoking Status: Never smoker Alcohol use: No CD- Drugs: No Caffeine use: No Place of Residence: [facility] Review of Systems is unable to be obtained Physical Examination - Physical Exam General: Demented, Confused, Other HEENT: Atraumatic Neck: Supple Respiratory: Clear to auscultation bilaterally, Normal air movement Cardiovascular: No edema, Regular rate/rhythm, Normal S1 S2 Gastrointestinal: No tenderness Musculoskeletal: No tenderness Integumentary: No rashes Neurological: Other (Generally nonverbal at baseline, max assist to wheelchair, otherwise bedbound currently not verbally responsive or following commands) - Studies Laboratory Data (last 24 hrs) 03/03/23 03/03/23 08:57 08:57 WBC 9.00 Hgb 12.2 Hct 36.8 Plt Count 288 Sodium 138 Potassium 4.0 BUN 13 Creatinine 0.94 Glucose 107 H Magnesium 2.4 Total Bilirubin 0.5 AST 14 L ALT 18 Alkaline Phosphatase 65 Assessment and Plan - Plan Assessment: New onset seizures Alzheimer's dementia Hypothyroidism Plan: New onset seizures Recently prescribed medication Rexulti possibly contributing especially with use of tramadol concurrently Hold Rexulti, tramadol. Seizure precautions in place Rexulti half live 91 hours, may require extended hospitalization if seizures continue Discussed with neurology recommends Keppra 500 mg twice daily Had 2 witnessed seizures in ED, never had seizures before CT head negative for acute findings, electrolytes acceptable Alzheimer's dementia Family interested in moving patient from assisted living to memory care unit client services director consult in place This may need to be arranged on outpatient basis Hypothyroidism Continue home levothyroxine when tolerating p.o. DVT PPX:Lovenox Code status:Full Discharge Plan: Home Plan to discharge in: 48 Hours - Advance Directives Does patient have a Living Will: No Does patient have a Durable POA for Healthcare: No - Code Status/Comfort Care Code Status Assessed: Yes (DNR) Critical Care: No Time Spent Managing Pts Care (In Minutes): 55
[2023-03-03] MEDS ORDERED: ACETAMINOPHEN 650MG/RECT SUPP PR PRN (19:30)
[2023-03-03 19:49] VITALS: BMI 20.1
[2023-03-03 20:48] LABS: Specific Gravity 1.016 (1.005-1.030); Urine Bacteria <20 /HPF (<20); Urine Bilirubin NEGATIVE (Negative); Urine Blood Negative (Negative); Urine Clarity Turbid (Clear); Urine Color Light-Yellow (Yellow); Urine Glucose NEGATIVE (Negative); Urine Mucus Slight /HPF (None Seen); Urine Protein NEGATIVE (Negative); Urine RBC <5 /HPF (None Seen); Urine Urobilinogen Normal (Normal)
[2023-03-03] MEDS ORDERED: D5 0.45 NS 1,000 ML IV ONE ×2 (21:14→22:39)
[2023-03-03] MEDS: D5 0.45 NS 1,000 ML IV SCH (22:28)
[2023-03-04 04:59] LABS: Hematocrit 36.1 % (36.0-45.0); Lymphocytes % 20.4 % (15.3-44.8); MCV 88.5 fL (80-100); MPV 8.5 fL (7.6-11.3); Platelets 278 thou/uL (152-406); RBC Red Blood Cell Count 4.08 M/uL (3.86-4.86)
[2023-03-04 05:23] LABS: Magnesium 2.2 mg/dL (1.6-2.4); Potassium 3.7 mEq/L (3.5-5.1)
[2023-03-04 05:34] LABS: Thyroid Stimulating Hormone 6.8 uIU/mL (0.358-3.740)
[2023-03-04] MEDS: D5 0.45 NS 1,000 ML IV SCH (06:45)
[2023-03-04] MEDS ORDERED: ENOXAPARIN 40 MG/0.4 ML SQ SCH (09:00)
[2023-03-04] MEDS ORDERED: levETIRAcetam 500 MG in NA CHLORIDE 0.9% 100 ML IV SCH (09:00)
--- NOTE | 2023-03-04 10:03 | P.PN ---
Date of Service: 03/04/23 Subjective: No further seizure-like activity overnight Much more alert today, generally nonverbal-at baseline per daughter Trying to get a bed frequently needing significant supervision to prevent falls ROS: 10 point ROS as noted above, otherwise negative Physical exam GEN: Alert, oriented, NAD HEENT: Normal conjunctiva, sclera anicteric CV: Regular rate and rhythm, no edema Pulm: Nonlabored respirations on room air ABD: Soft, nontender, nondistended MSK: No joint tenderness Integumentary: No rashes Neuro: Normal speech, normal affect Vitals reviewed Problem List Assessment: New onset seizures Alzheimer's dementia Hypothyroidism Plan: New onset seizures Recently prescribed medication Rexulti possibly contributing especially with use of tramadol concurrently Hold Rexulti, tramadol. Seizure precautions in place Rexulti half live 91 hours, may require extended hospitalization if seizures continue Discussed with neurology recommends Keppra 500 mg twice daily Had 2 witnessed seizures in ED, never had seizures before CT head negative for acute findings, electrolytes acceptable Mental status much improved today, close to baseline per daughter Patient states that assisted living facility, patient may need higher level of care/memory care unit given her recent frequent falls and constant attempts to get out of bed as well as new onset seizures services advisor consult in place Alzheimer's dementia Supportive care May need memory care unit at [place] Hypothyroidism Continue home levothyroxine when tolerating p.o. VTE: Lovenox Code: DNR Dispo: 1 to 2 days Time Spent Managing Pts Care (In Minutes): 35
[2023-03-04] MEDS ORDERED: ENOXAPARIN 40 MG/0.4 ML SQ ONE ×2 (10:17→10:51)
[2023-03-04] MEDS ORDERED: LEVETIRACETAM 500 MG/5 ML VIAL IV ONE (10:51)
[2023-03-04] MEDS ORDERED: NA CHLORIDE 0.9% 100 ML ONE (10:51)
[2023-03-04] MEDS ORDERED: ACETAMINOPHEN 500 MG TAB ONE (12:28)
--- NOTE | 2023-03-04 13:53 | P.DS ---
Admission Date: 03/03/23 Discharge Date: 03/04/23 Disposition: ROUTINE DISCHARGE Discharge Condition: FAIR Reason for Admission: New onset seizures Consultations: Neurology-Dr. Miranda Brief History of Present Illness: 77-year-old female with history of Alzheimer's, hypothyroidism presents to the ER for altered mental status. She is a resident of [facility] and staff found her unresponsive at the breakfast table with her head slumped over this morning and reported possible seizure-like activity. There was some question of an extra dose of Tylenol so she was given 0.4 mg of Narcan without significant improvement and brought to the emergency department for further evaluation. During her initial stay in the emergency department she was back to her baseline, awake but nonverbal generally, she subsequently had 2 witnessed seizures by ED stafftonic-clonic in nature and was given IV Ativan and loaded with 1 g of Keppra. Of note patient was started on Rexulti approximately 1-1/2 months ago, recently had a dose titrated down but she seemed to be having some adverse effects, also took tramadol today. Her labs were significant for an initial lactic acid of 2.8 downtrending to 0.7 BNP 596 glucose [address] head negative for acute findings. ED physician discussed case with neurology who recommends admission, treatment with Keppra 500 mg twice daily. Hospital Course: Patient was admitted to the hospital after experiencing new onset seizures. Her labs and CT head did not reveal an obvious cause of her seizures, her medicati ons were reviewed which included Rexulti and tramadol both of which can lower the seizure threshold. Case was discussed with neurology who recommended discontinuing his medications. Patient was treated with IV Keppra and transition to oral Keppra 5 mg twice daily today. Patient is back at her baseline mental status no further seizure activity during hospitalization. Neurology recommends follow-up in 1 to 2 weeks for outpatient EEG. Family working on setting up transition from assisted living facility [facility] to [facility] in memory care unit. Discussed risk of recurrent seizure with the pa tient/family. Patient at baseline is awake, alert, oriented x0 and periodically verbal. New medications Keppra 500 mg by mouth twice daily Discontinue Rexulti Tramadol Follow-up with Dr. Miranda in 1 to 2 weeks Follow-up with primary care doctor in 1 week Vital Signs/Physical Exam: Temp Pulse Resp BP Pulse Ox 98.1 F 75 18 114/80 98 03/04/23 08:00 03/04/23 08:00 03/04/23 08:00 03/04/23 08:00 03/04/23 08:00 General: Alert, In no apparent distress, Demented, Confused HEENT: Atraumatic, PERRLA Neck: Supple Respiratory: Clear to auscultation bilaterally, Normal air movement Cardiovascular: Regular rate/rhythm, Normal S1 S2 Gastrointestinal: No tenderness Musculoskeletal: No tenderness Integumentary: No rashes Neurological: Normal speech Laboratory Data at Discharge: WBC 9.80 thou/uL (4.3-10.9) 03/04/23 04:26 Hgb 12.1 g/dL (12.0-15.0) 03/04/23 04:26 Hct 36.1 % (36.0-45.0) 03/04/23 04:26 Plt Count 278 thou/uL (152-406) 03/04/23 04:26 Sodium 138 mEq/L (136-145) 03/04/23 04:26 Potassium 3.7 mEq/L (3.5-5.1) 03/04/23 04:26 BUN 9 mg/dL (7-18) 03/04/23 04:26 Creatinine 0.76 mg/dL (0.55-1.02) 03/04/23 04:26 Glucose 108 mg/dL (74-106) H 03/04/23 04:26 Magnesium 2.2 mg/dL (1.6-2.4) 03/04/23 04:26 Total Bilirubin 0.5 mg/dL (0.2-1.0) 03/03/23 08:57 AST 14 U/L (15-37) L 03/03/23 08:57 ALT 18 U/L (13-56) 03/03/23 08:57 Alkaline Phosphatase 65 U/L (45-117) 03/03/23 08:57 Home Medications: Duloxetine HCl 30 mg PO DAILY 10/03/22 Gabapentin 400 mg PO BID 10/03/22 Ibuprofen 200 mg PO DAILY PRN 10/03/22 Levothyroxine [Synthroid*] 125 mcg PO [id number] 10/03/22 Pravastatin Sodium 20 mg PO BEDTIME 10/03/22 Multivit-Min/Iron/FA/Vit K/Lut [Centrum Women 50 Plus Minis Tb] 1 tab PO DAILY 03/04/23 levETIRAcetam [Keppra] 500 mg PO BID 30 Days #60 tab 03/04/23 New Medications: levETIRAcetam [Keppra] 500 mg PO BID 30 Days #60 tab Physician Discharge Instructions: Patient was admitted to the hospital after experiencing new onset seizures. Her labs and CT head did not reveal an obvious cause of her seizures, her medications were reviewed which included Rexulti and tramadol both of which can lower the seizure threshold. Case was discussed with neurology who recommended discontinuing his medications. Patient was treated with IV Keppra and transition to oral Keppra 5 mg twice daily today. Patient is back at her baseline mental status no further seizure activity during hospitalization. Neurology recommends follow-up in 1 to 2 weeks for outpatient EEG. Family working on setting up transition from assisted living facility [facility] to [facility] in memory care unit. Discussed risk of recurrent seizure with the patient/family. Patient at baseline is awake, alert, oriented x0 and periodically verbal. New medications Keppra 500 mg by mouth twice daily Discontinue Rexulti Tramadol Follow-up with Dr. Miranda in 1 to 2 weeks Follow-up with primary care doctor in 1 week Diet: Regular Activity: Fall precautions Followup: Toy Miranda MD [ASSOCIATE-ACTIVE - CAN ADMIT] - 1-2 Weeks [facility] [Primary Care Provider] - 2-3 Days Time spent managing pt's care (in minutes): 25
[2023-03-04 15:08] VITALS: O2SAT 96
[2023-03-04 15:21] VITALS: BP 123/78; TEMP 97.8
[2023-03-04] MEDS ORDERED: levETIRAcetam 500 MG TAB PO SCH (21:00)
--- NOTE | 2023-03-06 16:56 | EKG ---
Test Date: 2023-03-03 Test Time: 09:04:19 Speech And Language Assistant: PH MEASUREMENT RESULTS: Intervals: Rate: 74 OH: 140 QRSD: 78 QT: 402 QTc: 446 [place]: P: 69 OH: 140 QRS: 29 T: 54 INTERPRETIVE STATEMENTS: Normal sinus rhythm with sinus arrhythmia Septal infarct, age undetermined Abnormal ECG Compared to ECG 02/21/2023 00:00:16 Myocardial infarct finding now present Electronically Signed On 03-06-23 16:52:46 HEALTH CARE CONSULTANT by Biju Harris
== END 2023-03-04 14:55 ==
LOC: ER 08:43 → INTOOBSV 15:26 → ERHOLD 15:26
PROVIDERS: ADMIT Hospitalist; ATTEND Hospitalist
DX: R56.9 Unspecified convulsions (principal); R41.82 Altered mental status, unspecified; G30.9 Alzheimer's disease, unspecified; E03.9 Hypothyroidism, unspecified; F02.80 Dementia in other diseases classified elsewhere, unspecified severity, without behavioral disturbance, psychotic disturbance, mood disturbance, and anxiety; Z88.1 Allergy status to other antibiotic agents; Z85.21 Personal history of malignant neoplasm of larynx
CPT/HCPCS: 96365; 96361; 93005; 85025 ×2; 81001; 80048 ×2; 36415; 83735 ×2; 80076; 83605 ×2; 84443; 84484; 84439; 83880; 70450; 96375; 99285; J1953 ×2; J1650; J7799 ×2; J7030; G0378 ×3